=== PATIENT | female | born 1995 | race Caucasian/White ===

== ENCOUNTER 2021-10-03 19:13 | Emergency (ER) | payer SELFPAY ==
[2021-10-03 20:07] VITALS: BP 113/76; PULSE 118; RESP 22; TEMP 37.8; O2SAT 97; BMI 23.2
--- NOTE | 2021-10-03 20:13 | W.ED.NAVMDI ---
HPI - Nausea/Vomiting/Diarrhea General: Chief complaint: Nausea/Vomiting/Diarrhea Stated complaint: N/V, low back pain Time Seen by Provider: 10/03/21 20:13 History of Present Illness: HPI Narrative: Patient reports flulike symptoms 2 weeks ago. Patient comes in today due to feeling ill since last night with nausea and vomiting and dysuria. Patient denies any abnormal vaginal discharge. Patient has a tubal ligation. Patient appears mildly unwell but not toxic. Patient denies any chronic medical problems. Associated nausea: Yes Associated symtoms: Reports dysuria and nausea Review of Systems GI: Reports: nausea and vomiting : Reports: difficulty voiding and dysuria [facility] ED Female Reproductive History: Date of last menstrual period: 09/30/21 Physical Exam Const: COMMON NORMALS: patient oriented x3 and alert GENERAL APPEARANCE: cooperative HENMT: COMMON NORMALS: atraumatic HEAD & SCALP: atraumatic Resp: COMMON NORMALS: normal respiratory effort and clear to auscultation bilaterally AUSCULTATION: clear to auscultation bilaterally GI: COMMON NORMALS: Soft to palpation PALPATION: Yes Soft to palpation and Yes Tenderness to palpation present (GI) Details: other (Suprapubic) : BLADDER/KIDNEY EXAM: Yes CVA tenderness on the right Back/Pelvis: GENERAL BACK: Yes CVA tenderness Neuro: COMMON NORMALS: patient oriented x3 SENSORIUM/ORIENTATION: Yes alert Psych: COMMON NORMALS: cooperative Skin: COMMON NORMALS: no rashes or lesions noted GENERAL SKIN EXAM: no rashes or lesions noted Course Vital Signs: Vital signs: Vital Signs Temperature 100.1 F H 10/03/21 20:07 Pulse Rate 118 H 10/03/21 20:07 Respiratory Rate 18 10/03/21 20:46 Blood Pressure 113/76 10/03/21 20:07 Pulse Oximetry 97 10/03/21 20:07 MDM - Nausea/Vomiting/Diarrhea MDM Narrative: Medical decision making narrative: Patient comes in with a 24-hour history of increasing urinary difficulty and pain with some right flank pain. On exam patient appears mildly unwell. Lungs are clear to auscultation. Abdomen is soft with suprapubic tenderness. Patient did have some right CVA tenderness. Vital signs noted some elevation in pulse at 118 and temperature of 100.1. Differential diagnosis includes UTI, pyelonephritis, appendicitis. Urinalysis had a large amount of white blood cells. Urine culture was sent. Patient have CBC of 17,000. Sodium was 3.4 and potassium was 134 suggesting some mild dehydration. No signs of appendicitis was noted at this time. Suspect patient probably has a urinary tract infection with some mild pyelonephritis. Patient was given 1 L of IV fluid, a gram of ceftriaxone IV, and some morphine and ondansetron for her symptoms. Patient felt improved after IV fluids she will continue on oral antibiotics for completion of therapy. Patient was also given a short course of hydrocodone for breakthrough pain after review of record indicated no recent narcotic prescriptions. Lab Data: Labs: Lab Results 10/03/21 10/03/21 10/03/21 20:40 20:40 20:40 WBC 17.7 10^3/uL H 10 ^3/uL (4.0-10.0) RBC 4.84 10^6/uL 10^6 /uL (4.1-5.3) Hgb 13.0 g/dL g/dL (11.5-15.3) Hct 39.9 % % (37.0-47.0) MCV 82.4 fl fl (81-99) MCH 26.9 pg L pg (28.0-34.0) MCHC 32.6 g/dL g/dL (30.0-36.0) RDW 13.5 % % (12.1-15.1) Plt Count 324 10^3/cmm 10^3 /cmm (130-400) MPV 9.3 fL fL (7.4-10.4) Neut % (Auto) 84.2 % % Lymph % (Auto) 6.8 % % [place] % (Auto) 8.0 % % Eos % (Auto) 0.1 % % Baso % (Auto) 0.3 % % Neut # (Auto) 14.95 10^3/uL H 1 0^3/uL (1.8-7.7) Lymph # (Auto) 1.2 10^3/uL 10^3/ uL (0.8-4.8) [place] # (Auto) 1.4 10^3/uL H 10^ 3/uL (0.2-0.9) Eos # (Auto) 0.0 10^3/uL 10^3/ uL (0.0-0.8) Baso # (Auto) 0.1 10^3/uL 10^3/ uL (0.0-0.1) Nucleated RBC % (a uto) 0 % % Nucleated RBCs # 0.0 /100WBC /100W BC Sodium 134 mmol/L L mmol /L (136-145) Potassium 3.4 mmol/L L mmol /L (3.5-5.1) Chloride 95 mmol/L L mmol/ L (98-107) Carbon Dioxide 23 mmol/L mmol/L (22-29) Anion Gap 19.4 H (5-19) BUN 10 mg/dL mg/dL (6-20) Creatinine 0.8 mg/dL mg/dL (0.5-0.9) GFR Calculation 85.4 mL/min L mL/ min (90-130) Glucose 115 mg/dL mg/dL (65-115) Calculated Osmolal ity 278 mOsm/kg L mOs m/kg (285-295) Calcium 9.2 mg/dL mg/dL (8.5-10.5) Total Bilirubin 0.8 mg/dL mg/dL (0.15-1.2) AST 12 U/L U/L (0-32) ALT 9 U/L U/L (0-33) Alkaline Phosphata se 77 IU/L IU/L (35-105) Total Protein 8.3 g/dL g/dL (6.6-8.7) Albumin 4.8 g/dL g/dL (3.5-5.2) Globulin 3.5 g/dL g/dL (1.3-4.6) Lipase 19 U/L U/L (13-60) HCG, Qual Negative (Negative) Urine Color Urine Appearance Urine pH Ur Specific Gravit y Urine Protein Urine Glucose (UA) Urine Ketones Urine Blood Urine Nitrate Urine Bilirubin Prot Sulfosalicyli c Acd Urine Urobilinogen Ur Leukocyte Leslye ase Urine RBC Urine WBC Ur Squamous Epith Cells Amorphous Sediment Urine Bacteria 10/03/21 20:40 WBC RBC Hgb Hct MCV MCH MCHC RDW Plt Count MPV Neut % (Auto) Lymph % (Auto) [place] % (Auto) Eos % (Auto) Baso % (Auto) Neut # (Auto) Lymph # (Auto) [place] # (Auto) Eos # (Auto) Baso # (Auto) Nucleated RBC % (a uto) Nucleated RBCs # Sodium Potassium Chloride Carbon Dioxide Anion Gap BUN Creatinine GFR Calculation Glucose Calculated Osmolal ity Calcium Total Bilirubin AST ALT Alkaline Phosphata se Total Protein Albumin Globulin Lipase HCG, Qual Urine Color Yellow (Yellow) Urine Appearance Hazy A (CLEAR) Urine pH 8 H (5-7) Ur Specific Gravit y 1.010 (1.005-1.030) Urine Protein 3+ H (Negative) Urine Glucose (UA) Norm (Normal) Urine Ketones 1+ H (Negative) Urine Blood 3+ H (Negative) Urine Nitrate Negative (Negative) Urine Bilirubin Neg (Negative) Prot Sulfosalicyli c Acd Positive (Negative) Urine Urobilinogen Norm mg/dL mg/dL (Negative) Ur Leukocyte Leslye ase 2+ H (Negative) Urine RBC 25-40 /hpf H /hpf (0-2) Urine WBC >100 /hpf H /hpf (0-5) Ur Squamous Epith Cells 15-25 /hpf H /hpf (0-5) Amorphous Sediment Not Reportable Urine Bacteria 4+ /hpf H /hpf (NONE) Discharge Plan Discharge Patient Disposition: Home Clinical Impression: Pyelonephritis Condition: Stable Prescriptions: New cephalexin 500 mg capsule 500 mg PO Q8H 7 Days Qty: 21 RF: 0 phenazopyridine 100 mg tablet 100 mg PO Q8H Qty: 6 RF: 0 hydrocodone-acetaminophen 5-325 mg tablet 1 tab PO Q8H PRN (Reason: pain (scale score 7-10)) Qty: 6 RF: 0 Discharge Orders: Discharge ED (Routine); Ordered 10/03/21 Ordered By: Bautista Rios Discharge Diet: Usual diet Discharge Activity: Increase activity as tolerated Patient Instructions: Kidney Infection (ED), Opioid Safety Activity Restrictions/Additional Instructions: Drink plenty of water. Take medication as directed. Follow-up with primary care in 1 week for recheck of urine. Return to the ER for new concerns. 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
[2021-10-03] MEDS: sodium chloride 0.9% 1,000 ML 999 ML IV (20:40)
[2021-10-03 20:46] VITALS: RESP 18
[2021-10-03] MEDS: morphine 4 mg/mL SDV 1 mL 2 MG IVP (20:46)
[2021-10-03] MEDS: ondansetron 2 mg/ML SDV 2 mL 4 MG IVP (20:46)
[2021-10-03 20:50] LABS: Basophils # 0.1 10^3/uL (0.0-0.1); Basophils % 0.3 %; Eosinophils % 0.1 %; Hematocrit 39.9 % (37.0-47.0); Lymphocytes # 1.2 10^3/uL (0.8-4.8); Lymphocytes % 6.8 %; Mean Corpuscular HGB Conc 32.6 g/dL (30.0-36.0); Mean Corpuscular Hemoglobin 26.9 pg (28.0-34.0); Mean Corpuscular Volume 82.4 fl (81-99); Mean Platelet Volume 9.3 fL (7.4-10.4); Monocytes # 1.4 10^3/uL (0.2-0.9); Neutrophils # 14.95 10^3/uL (1.8-7.7); Neutrophils % 84.2 %; Nucleated Red Blood Cells % 0 %; Platelet Count 324 10^3/cmm (130-400); Red Blood Count 4.84 10^6/uL (4.1-5.3); Red Cell Distribution Width 13.5 % (12.1-15.1); White Blood Count 17.7 10^3/uL (4.0-10.0)
[2021-10-03 21:08] LABS: Add Urine Microscopic? YES; Bilirubin Urine Neg (Negative); Blood Urine 3+ (Negative); Glucose Urine UA Norm (Normal); Ketones Urine 1+ (Negative); Leukocyte Esterase Urine 2+ (Negative); Nitrate Urine Negative (Negative); Protein Urine 3+ (Negative); Sulfosalicylic Acid Urine Positive (Negative); Urine Appearance Hazy (CLEAR); Urine Color Yellow (Yellow); Urobilinogen Urine Norm (Negative); pH Urine 8 (5-7)
[2021-10-03 21:10] LABS: HCG, Serum Qual Negative (Negative)
[2021-10-03 21:13] LABS: Add Urine Culture? No; Bacteria Urine 4+ /hpf; RBC Urine 25-40 /hpf (0-2); Squamous Epithelial Cell Urine 15-25 /hpf (0-5); WBC Urine >100 /hpf (0-5)
[2021-10-03 21:18] LABS: Alanine Aminotransferase 9 U/L (0-33); Albumin Level 4.8 g/dL (3.5-5.2); Alkaline Phosphatase 77 IU/L (35-105); Anion Gap 19.4 (5-19); Aspartate Amino Transferase 12 U/L (0-32); Blood Urea Nitrogen 10 mg/dL (6-20); Calcium 9.2 mg/dL (8.5-10.5); Carbon Dioxide 23 mmol/L (22-29); Chloride 95 mmol/L (98-107); Globulin 3.5 g/dL (1.3-4.6); Glomerular Filtration Rate 85.4 mL/min (90-130); Glucose 115 mg/dL (65-115); Lipase 19 U/L (13-60); Osmolality Calculated 278 mOsm/kg (285-295); Potassium 3.4 mmol/L (3.5-5.1); Sodium 134 mmol/L (136-145); Total Bilirubin 0.8 mg/dL (0.15-1.2); Total Protein 8.3 g/dL (6.6-8.7)
[2021-10-03] MEDS: cefTRIAXone 1,000 MG in sodium chloride 0.9% (plus) 50 ML 100 MG IV (21:44)
[2021-10-03] MEDS: HYDROcodone-acetaminophen 5-325 mg Tablet 1 TAB PO (22:12)
[2021-10-03 22:23] VITALS: BP 124/49; PULSE 97; RESP 20; O2SAT 96
== END 2021-10-03 22:24 | disposition home or self-care (01) ==
PROVIDERS: Emergency Provider Nurse Practitioner Family
DX: N12 Tubulo-interstitial nephritis, not specified as acute or chronic (principal)
CPT/HCPCS: 80053; 81001; 83690; 84703; 85025; 96365; 96375; 99283; J0696; J2270; J2405; J7030

== ENCOUNTER 2022-03-10 19:32 | Emergency (ER) | payer MEDICAID, SELFPAY ==
[2022-03-10 19:53] VITALS: BP 139/80; PULSE 99; RESP 20; TEMP 37.8; O2SAT 98; BMI 22.8
--- NOTE | 2022-03-10 23:09 | XRR_ITS ---
PROCEDURE INFORMATION: Exam: XR Chest Exam date and time: 03/10/2022 11:11 PM Age: 26 years old Clinical indication: Patient HX: C/O fever. TECHNIQUE: Imaging protocol: Radiologic exam of the chest. Views: 1 view. COMPARISON: CR Chest 2 views* [id number] 10/15/2018 5:54 PM FINDINGS: Lungs: Unremarkable. No consolidation. Pleural spaces: Unremarkable. No pleural effusion. No pneumothorax. Heart/Mediastinum: Unremarkable. No cardiomegaly. Bones/joints: Unremarkable. XR/XR chest 1V portable [id number] IMPRESSION: No acute findings.
--- NOTE | 2022-03-10 23:15 | ED_ITS ---
HPI - Abdominal Pain General: Chief Complaint: Abdominal Pain Stated Complaint: abd pain , N/V Time Seen by Provider: 03/10/22 23:03 Source: patient Mode of arrival: ambulatory Limitations: no limitations History of Present Illness: 26-year-old female states that over the last day she has been having low-grade fevers along with generalized body aches. States she is just felt weak and not well she has been having some flank pain. She states she also had nausea no vomiting she denies any worsening improving factors she does have a low-grade fever here denies any known sick contacts. She Associated Symptoms: Reports chills, fever(s) and nausea Related Data: Date of Last Menstrual Period: 09/30/21 Review of Systems Const: Reports: fever(s) and chills Eyes: Denies: blurry vision or eye discomfort ENMT: Denies: throat pain or dental pain Card: Denies: chest pain Resp: Denies: dyspnea GI: Reports: abdominal pain and nausea : Reports: flank pain Musc: Denies: neck pain or back pain Skin/Breast: Denies: rash Neuro: Denies: headache(s) Psych: Denies: depression Wade/Lymph: Denies: easy bruising All/Imm: Denies: urticaria PFSH ED PFSH: Medical History (Updated 03/11/22 @ 01:02 by Chad Brown MD) No pertinent past medical history Social History (Updated 03/10/22 @ 23:15 by Chad Brown MD) Smoking and tobacco status: former smoker Female Reproductive History: Date of last menstrual period: 09/30/21 Physical Exam Const: COMMON NORMALS: no acute distress, patient oriented x3 and healthy appearing HENMT: COMMON NORMALS: normocephalic and atraumatic HEAD & SCALP: normocephalic and atraumatic Eye: COMMON NORMALS: Equal, round and reactive pupils present and EOMs intact bilaterally PUPIL: Yes Equal, round and reactive pupils present Neck/C-Spine: COMMON NORMALS: full ROM and supple Chest: COMMONS NORMALS: normal inspection of the chest and normal palpation of entire chest wall Resp: COMMON NORMALS: normal respiratory effort, No retractions, No use of accessory muscles and clear to auscultation bilaterally AUSCULTATION: clear to auscultation bilaterally Cardio: COMMON NORMALS: regular rate, regular rhythm and No murmurs present (Cardio) RATE: regular rate RHYTHM: regular rhythm GI: COMMON NORMALS: Normal to inspection, nondistended, normoactive bowel sounds present, Soft to palpation, non-tender and no masses PALPATION: Yes Soft to palpation Extremity: COMMON NORMALS: normal to inspection and full ROM Neuro: COMMON NORMALS: patient oriented x3, moves all extremities and no focal motor deficits Psych: COMMON NORMALS: mental status grossly normal, Normal thought process present and cooperative THOUGHT PROCESS: Normal thought process present Skin: COMMON NORMALS: no rashes or lesions noted and no wounds GENERAL SKIN EXAM: no rashes or lesions noted Course Vital Signs: Vital signs: Vital Signs Temperature 100.1 F H 03/10/22 19:53 Pulse Rate 92 03/10/22 23:30 Respiratory Rate 20 H 03/10/22 23:44 Blood Pressure 125/86 03/10/22 23:30 Pulse Oximetry 97 03/10/22 23:44 MDM - Abdominal Pain Medical Decision Making Patient presents here with fever body aches is COVID-positive likely causing most of her symptoms she does have a urinary tract infection as well. We will give her Rocephin here she feels improved here after IV fluids will prescribe her Keflex for home she is to follow-up with PCP and return if worsening she understands agrees to plan. Lab Data : 03/10/22 23:15 03/10/22 23:15 Labs/Radiology: Laboratory Results WBC 3.6 10^3/uL (4.0-10.0) L 03/10/22 23:15 RBC 4.72 10^6/uL (4.1-5.3) 03/10/22 23:15 Hgb 12.8 g/dL (11.5-15.3) 03/10/22 23:15 Hct 37.4 % (37.0-47.0) 03/10/22 23:15 MCV 79.2 fl (81-99) L 03/10/22 23:15 MCH 27.1 pg (28.0-34.0) L 03/10/22 23:15 MCHC 34.2 g/dL (30.0-36.0) 03/10/22 23:15 RDW 14.6 % (12.1-15.1) 03/10/22 23:15 Plt Count 150 10^3/cmm (130-400) 03/10/22 23:15 MPV 10.3 fL (7.4-10.4) 03/10/22 23:15 Neut % (Auto) 61.3 % 03/10/22 23:15 Lymph % (Auto) 18.1 % 03/10/22 23:15 [place] % (Auto) 19.4 % 03/10/22 23:15 Eos % (Auto) 0.3 % 03/10/22 23:15 Baso % (Auto) 0.3 % 03/10/22 23:15 Neut # (Auto) 2.21 10^3/uL (1.8-7.7) 03/10/22 23:15 Lymph # (Auto) 0.7 10^3/uL (0.8-4.8) L 03/10/22 23:15 [place] # (Auto) 0.7 10^3/uL (0.2-0.9) 03/10/22 23:15 Eos # (Auto) 0.0 10^3/uL (0.0-0.8) 03/10/22 23:15 Baso # (Auto) 0.0 10^3/uL (0.0-0.1) 03/10/22 23:15 Nucleated RBC % (auto) 0 % 03/10/22 23:15 Nucleated RBCs # 0.0 /100WBC 03/10/22 23:15 Sodium 132 mmol/L (136-145) L 03/10/22 23:15 Potassium 3.2 mmol/L (3.5-5.1) L 03/10/22 23:15 Chloride 95 mmol/L (98-107) L 03/10/22 23:15 Carbon Dioxide 18 mmol/L (22-29) L 03/10/22 23:15 Anion Gap 22.2 (5-19) H 03/10/22 23:15 BUN 11 mg/dL (6-20) 03/10/22 23:15 Creatinine 0.9 mg/dL (0.5-0.9) 03/10/22 23:15 GFR Calculation 74.6 mL/min (90-130) L 03/10/22 23:15 Glucose 89 mg/dL (65-115) 03/10/22 23:15 Calculated Osmolality 273 mOsm/kg (285-295) L 03/10/22 23:15 Calcium 8.8 mg/dL (8.5-10.5) 03/10/22 23:15 Total Bilirubin 0.4 mg/dL (0.15-1.2) 03/10/22 23:15 AST 18 U/L (0-32) 03/10/22 23:15 ALT 7 U/L (0-33) 03/10/22 23:15 Alkaline Phosphatase 63 IU/L (35-105) 03/10/22 23:15 Total Protein 8.1 g/dL (6.6-8.7) 03/10/22 23:15 Albumin 4.9 g/dL (3.5-5.2) 03/10/22 23:15 Globulin 3.2 g/dL (1.3-4.6) 03/10/22 23:15 Lipase 36 U/L (13-60) 03/10/22 23:15 HCG, Qual Negative (Negative) 03/10/22 23:15 Urine Color Yellow (Yellow) 03/11/22 00:31 Urine Appearance Sl hazy (CLEAR) 03/11/22 00:31 Urine pH 6 (5-7) 03/11/22 00:31 Ur Specific [place] 1.025 (1.005-1.030) 03/11/22 00:31 Urine Protein Trace (Negative) 03/11/22 00:31 Urine Glucose (UA) Norm (Normal) 03/11/22 00:31 Urine Ketones 3+ (Negative) H 03/11/22 00:31 Urine Blood 2+ (Negative) H 03/11/22 00:31 Urine Nitrate Positive (Negative) H 03/11/22 00:31 Urine Bilirubin Neg (Negative) 03/11/22 00:31 Urine Urobilinogen Norm mg/dL (Negative) 03/11/22 00:31 Ur Leukocyte Esterase Negative (Negative) 03/11/22 00:31 Urine RBC 5-10 /hpf (0-2) H 03/11/22 00:31 Urine WBC 5-10 /hpf (0-5) H 03/11/22 00:31 Ur Squamous Epith Cells 15-25 /hpf (0-5) H 03/11/22 00:31 Amorphous Sediment Not Reportable 06/24/22 00:31 Urine Bacteria 3+ /hpf (NONE) H 03/11/22 00:31 Urine Mucus 1+ /hpf 03/11/22 00:31 SARS-CoV-2 Ag (Rapid) Positive (Negative) H 03/10/22 23:30 Discharge Plan Discharge Patient Disposition: Home Clinical Impression: COVID-19, Acute cystitis Prescriptions: New cephalexin 500 mg capsule 500 mg PO TID 7 Days Qty: 21 0RF No Action phenazopyridine 100 mg tablet 100 mg PO Q8H Qty: 6 0RF Rx Instructions: urinary pain hydrocodone-acetaminophen 5-325 mg tablet 1 tab PO Q8H PRN (Reason: pain (scale score 7-10)) Qty: 6 0RF Discharge Orders: Discharge ED (Routine); Ordered 03/11/22 Ordered By: Chad Brown Discharge Diet: Advance as tolerated Discharge Activity: Resume usual activity Patient Instructions: COVID-19 (Coronavirus Disease 2019) (ED) Coding Level of Care Code ED [employer] Application Architect for Janel Fwd Exam Comprehensive
[2022-03-10 23:22] LABS: Basophils % 0.3 %; Eosinophils % 0.3 %; Hematocrit 37.4 % (37.0-47.0); Hemoglobin 12.8 g/dL (11.5-15.3); Lymphocytes # 0.7 10^3/uL (0.8-4.8); Lymphocytes % 18.1 %; Mean Corpuscular HGB Conc 34.2 g/dL (30.0-36.0); Mean Corpuscular Hemoglobin 27.1 pg (28.0-34.0); Mean Corpuscular Volume 79.2 fl (81-99); Mean Platelet Volume 10.3 fL (7.4-10.4); Monocytes # 0.7 10^3/uL (0.2-0.9); Monocytes % 19.4 %; Neutrophils # 2.21 10^3/uL (1.8-7.7); Neutrophils % 61.3 %; Nucleated Red Blood Cells % 0 %; Platelet Count 150 10^3/cmm (130-400); Red Blood Count 4.72 10^6/uL (4.1-5.3); Red Cell Distribution Width 14.6 % (12.1-15.1); White Blood Count 3.6 10^3/uL (4.0-10.0)
[2022-03-10 23:26] VITALS: BP 130/77; PULSE 95; RESP 20
[2022-03-10 23:30] VITALS: BP 125/86; PULSE 92; RESP 20
[2022-03-10 23:38] LABS: HCG, Serum Qual Negative (Negative)
[2022-03-10 23:39] LABS: Alanine Aminotransferase 7 U/L (0-33); Albumin Level 4.9 g/dL (3.5-5.2); Alkaline Phosphatase 63 IU/L (35-105); Anion Gap 22.2 (5-19); Aspartate Amino Transferase 18 U/L (0-32); Blood Urea Nitrogen 11 mg/dL (6-20); Calcium 8.8 mg/dL (8.5-10.5); Carbon Dioxide 18 mmol/L (22-29); Chloride 95 mmol/L (98-107); Globulin 3.2 g/dL (1.3-4.6); Glomerular Filtration Rate 74.6 mL/min (90-130); Glucose 89 mg/dL (65-115); Lipase 36 U/L (13-60); Osmolality Calculated 273 mOsm/kg (285-295); Potassium 3.2 mmol/L (3.5-5.1); Sodium 132 mmol/L (136-145); Total Bilirubin 0.4 mg/dL (0.15-1.2); Total Protein 8.1 g/dL (6.6-8.7)
[2022-03-10 23:44] VITALS: RESP 20; O2SAT 97
[2022-03-10] MEDS: acetaminophen 325 mg Tablet 650 MG PO (23:44)
[2022-03-10] MEDS: sodium chloride 0.9% 1,000 ML 999 ML IV (23:44)
[2022-03-10] MEDS: morphine 4 mg/mL SDV 1 mL IVP (23:44)
[2022-03-10] MEDS: ondansetron 2 mg/ML SDV 2 mL 4 MG IVP (23:44)
[2022-03-11 00:23] LABS: SARS Covid-2 Antigen Positive (Negative)
[2022-03-11] MEDS: sodium chloride 0.9% 1,000 ML 999 ML IV (00:49)
[2022-03-11] MEDS: ketorolac 30 mg/mL INJ 15 MG IVP (00:49)
[2022-03-11 00:55] LABS: Glucose Urine UA Norm (Normal); Protein Urine Trace (Negative); Specific Gravity, Urine 1.025 (1.005-1.030); Urine Appearance SL Hazy (CLEAR); Urine Color Yellow (Yellow); pH Urine 6 (5-7)
[2022-03-11 00:56] LABS: Add Urine Microscopic? YES; Bilirubin Urine Neg (Negative); Blood Urine 2+ (Negative); Ketones Urine 3+ (Negative); Leukocyte Esterase Urine Negative (Negative); Nitrate Urine Positive (Negative); Urobilinogen Urine Norm (Negative)
[2022-03-11 00:58] LABS: Add Urine Culture? No; Bacteria Urine 3+ /hpf; Mucus Urine 1+ /hpf; Squamous Epithelial Cell Urine 15-25 /hpf (0-5)
[2022-03-11 01:09] LABS: Calcium Oxalate Crystals Urine 0-4 /hpf
[2022-03-11] MEDS: cefTRIAXone 1,000 MG in lidocaine 1% 2.1 ML 1 MG IM (01:21)
[2022-03-11 01:30] VITALS: BP 124/66; PULSE 93; RESP 22; O2SAT 94
[2022-03-11 01:37] VITALS: BP 124/66; PULSE 93; RESP 22; O2SAT 94
== END 2022-03-11 01:38 | disposition home or self-care (01) ==
PROVIDERS: Emergency Provider Emergency Medicine
DX: N30.00 Acute cystitis without hematuria (principal); Z87.891 Personal history of nicotine dependence
CPT/HCPCS: 71045; 80053; 81001; 83690; 84703; 85025; 87426; 96365; 96375; 99284; J0696; J1885; J2270; J2405; J7030

== ENCOUNTER 2022-05-16 07:49 | Inpatient (IN) | payer MEDICAID, SELFPAY ==
[2022-05-16] VITALS (9 sets, daily range): BP systolic 101–121; BP diastolic 53–83; PULSE 77–109; RESP 15–24; TEMP 36.6–39.2; O2SAT 95–100; BMI 25.6
--- NOTE | 2022-05-16 08:26 | ED_ITS ---
HPI - Nausea/Vomiting/Diarrhea General: Chief complaint: ER Hold Stated complaint: Sick and in pain Time Seen by Provider: 05/16/22 07:55 Source: patient Mode of arrival: ambulatory History of Present Illness: 26-year-old female presents emergency room complaining of nausea and vomiting. She has left flank pain and a severe head ache. She has not had any diarrhea. She is currently on her. She is not noticed any blood in her urine but admits is difficult to tell. She has no history of kidney stones she has a temp of 102.6 at this time is complaining of severe headache. 3 days ago she drove a vehicle in a [place] although the headache seemed to begin after that. She cannot recall when her last bowel movement was. She does have an umbilical hernia that is incarcerated and significantly tender. She denies any hematemesis or coffee-ground emesis. The fever nausea and vomiting all began suddenly around 430 this morning. MD elicited complaint: nausea and vomiting Onset (ago): hour(s) Associated nausea: Yes Location of pain: None Radiation: diffuse Associated symtoms: Reports dysuria, fatigue, malaise and nausea; Denies chest pain, palpitations or syncope Review of Systems Const: Reports: fever(s), chills, body aches, fatigue and malaise; Denies: change in appetite ENMT: Denies: throat pain, ear or mastoid pain, nasal discharge or nasal congestion Card: Denies: chest pain, palpitations, irregular heart rhythm, edema, syncope, dyspnea on exertion or orthopnea Resp: Denies: dyspnea, productive cough or non-productive cough GI: Reports: nausea; Denies: abdominal pain, vomiting or hematemesis : Reports: flank pain, dysuria and urinary frequency; Denies: difficulty voiding or urinary urgency Musc: Reports: back pain Skin/Breast: Denies: rash or pruritus PFSH ED PFSH: Medical History No pertinent past medical history Surgical History History of Family History Other Cancer Social History (Reviewed 09/06/22 @ 06:16 by RADHA Clifton Smoking and tobacco status: current every day smoker Alcohol intake: current Female Reproductive History: Date of last menstrual period: 05/16/22 Physical Exam Const: GENERAL APPEARANCE: cooperative ORIENTATION/CONSCIOUSNESS: Yes awake, Yes oriented to person, Yes oriented to place and Yes oriented to time HENMT: COMMON NORMALS: normocephalic, atraumatic and hearing grossly normal bilaterally HEAD & SCALP: normocephalic and atraumatic Resp: COMMON NORMALS: normal respiratory effort, No retractions, No use of accessory muscles and clear to auscultation bilaterally AUSCULTATION: clear to auscultation bilaterally Cardio: COMMON NORMALS: regular rhythm and No murmurs present (Cardio) RATE: tachycardic RHYTHM: regular rhythm GI: COMMON NORMALS: Soft to palpation and No hepatosplenomegaly present AUSCULTATION: Yes normoactive bowel sounds PALPATION: Yes Soft to palpation, No Tenderness to palpation present (GI), No Guarding due to palpation present (GI) and Yes No hepatosplenomegaly present : BLADDER/KIDNEY EXAM: Yes CVA tenderness Back/Pelvis: GENERAL BACK: Yes CVA tenderness CVA tenderness: right Extremity: COMMON NORMALS: normal to inspection, capillary refill normal, no clubbing, cyanosis or edema, no calf tenderness and no pedal edema Neuro: SENSORIUM/ORIENTATION: Yes oriented to person, Yes oriented to place and Yes oriented to time Skin: COMMON NORMALS: no rashes or lesions noted GENERAL SKIN EXAM: no rashes or lesions noted Course Vital Signs: Vital signs: Vital Signs Temperature 97.8 F 05/18/22 12:41 Pulse Rate 68 05/18/22 12:41 Respiratory Rate 17 05/18/22 12:41 Blood Pressure 88/55 05/18/22 12:41 Pulse Oximetry 98 05/18/22 12:41 Oxygen Delivery Me thod 05/18/22 03:45 MDM - Nausea/Vomiting/Diarrhea Medical Decision Making Cystitis on UA. Given her symptoms of fever flank pain and CT findings of stranding clinically she has a pyelonephritis discussed with hospitalist orders written Lab Data : 05/18/22 04:16 05/18/22 04:16 Radiology Impressions Abdomen/Pelvis CT 05/16/22 08:28 IMPRESSION: 1. Multifocal RIGHT renal pyelonephritis. No renal abscess. No obstruction although there are mild inflammatory changes in the central renal pelvis and pro ximal ureter. 2. Negative LEFT kidney. 3. Normal appendix. 4. Fluid distended endometrium. Slightly more than expected but could be related to the patient's menstrual cycle. 5. Small amount of physiologic free fluid in the pelvis. Head CT 05/16/22 08:28 IMPRESSION: Negative head CT. Laboratory Results WBC 9.0 10^3/uL (4.0-10.0) 05/17/22 05:08 RBC 3.75 10^6/uL (4.1-5.3) L 05/17/22 05:08 Hgb 10.8 g/dL (11.5-15.3) L 05/17/22 05:08 Hct 33.0 % (37.0-47.0) L 05/17/22 05:08 MCV 88.0 fl (81-99) D 05/17/22 05:08 MCH 28.8 pg (28.0-34.0) 05/17/22 05:08 MCHC 32.7 g/dL (30.0-36.0) D 05/17/22 05:08 RDW 13.8 % (12.1-15.1) 05/17/22 05:08 Plt Count 191 10^3/cmm (130-400) 05/17/22 05:08 MPV 9.2 fL (7.4-10.4) 05/17/22 05:08 Neut % (Auto) 66.4 % 05/17/22 05:08 Lymph % (Auto) 18.9 % 05/17/22 05:08 [place] % (Auto) 13.0 % 05/17/22 05:08 Eos % (Auto) 1.0 % 05/17/22 05:08 Baso % (Auto) 0.3 % 05/17/22 05:08 Neut # (Auto) 5.94 10^3/uL (1.8-7.7) 05/17/22 05:08 Lymph # (Auto) 1.7 10^3/uL (0.8-4.8) 05/17/22 05:08 [place] # (Auto) 1.2 10^3/uL (0.2-0.9) H 05/17/22 05:08 Eos # (Auto) 0.1 10^3/uL (0.0-0.8) 05/17/22 05:08 Baso # (Auto) 0.0 10^3/uL (0.0-0.1) 05/17/22 05:08 Nucleated RBC % (auto) 0 % 05/17/22 05:08 Nucleated RBCs # 0.0 /100WBC 05/17/22 05:08 Sodium 135 mmol/L (136-145) L 05/17/22 05:08 Potassium 3.9 mmol/L (3.5-5.1) 05/17/22 05:08 Chloride 105 mmol/L (98-107) 05/17/22 05:08 Carbon Dioxide 23 mmol/L (22-29) 05/17/22 05:08 Anion Gap 10.9 (5-19) 05/17/22 05:08 BUN 4 mg/dL (6-20) L 05/17/22 05:08 Creatinine 0.6 mg/dL (0.5-0.9) 05/17/22 05:08 GFR Calculation 119.0 mL/min (90-130) 05/17/22 05:08 Glucose 127 mg/dL (65-115) H 05/17/22 05:08 Calculated Osmolality 278 mOsm/kg (285-295) L 05/17/22 05:08 Calcium 7.9 mg/dL (8.5-10.5) L 05/17/22 05:08 Magnesium 1.6 mg/dL (1.7-2.3) L 05/16/22 08:25 Total Bilirubin 0.6 mg/dL (0.15-1.2) 05/16/22 08:25 AST 12 U/L (0-32) 05/16/22 08:25 ALT 6 U/L (0-33) 05/16/22 08:25 Alkaline Phosphatase 65 U/L (35-105) 05/16/22 08:25 Total Protein 7.5 g/dL (6.6-8.7) 05/16/22 08:25 Albumin 4.2 g/dL (3.5-5.2) 05/16/22 08:25 Globulin 3.3 g/dL (1.3-4.6) 05/16/22 08:25 TSH 0.98 uIU/mL (0.27-4.20) 05/16/22 08:25 HCG, Qual Negative (Negative) 05/16/22 08:25 Urine Color Yellow (Yellow) 05/16/22 08:40 Urine Appearance Sl hazy (CLEAR) 05/16/22 08:40 Urine pH 9 (5-7) H 05/16/22 08:40 Ur Specific [place] 1.015 (1.005-1.030) 05/16/22 08:40 Urine Protein Neg (Negative) 05/16/22 08:40 Urine Glucose (UA) Norm (Normal) 05/16/22 08:40 Urine Ketones 1+ (Negative) H 05/16/22 08:40 Urine Blood Neg (Negative) 05/16/22 08:40 Urine Nitrate Positive (Negative) H 05/16/22 08:40 Urine Bilirubin Neg (Negative) 05/16/22 08:40 Prot Sulfosalicylic Acd Negative (Negative) 05/16/22 08:40 Urine Urobilinogen Norm mg/dL (Negative) 05/16/22 08:40 Ur Leukocyte Esterase Trace (Negative) H 05/16/22 08:40 Urine RBC None /hpf (0-2) 05/16/22 08:40 Urine WBC 15-25 /hpf (0-5) H 05/16/22 08:40 Ur Squamous Epith Cells 0-4 /hpf (0-5) H 05/16/22 08:40 Amorphous Sediment Not Reportable 05/16/22 08:40 Urine Bacteria 2+ /hpf (NONE) H 05/16/22 08:40 Coronavirus 229E (PCR) Not detected (NOT DETECT) 05/16/22 08:45 SARS-CoV-2 (PCR) Not detected (NOT DETECT) 05/16/22 08:45 Discharge Plan Discharge Patient Disposition: Admitted As Inpatient Admit Provider: Philippe Joyner Clinical Impression: Pyelonephritis Condition: Stable Coding Level of Care Code 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
--- NOTE | 2022-05-16 08:28 | CT_ITS ---
WS: [id number] CT HEAD NONCONTRAST HISTORY: headace/fever TECHNIQUE: Contiguous axial imaging performed through the brain in 2.5 mm imaging. Bone and soft tiss ue windows. Sagittal and coronal reformats reviewed. All CT scans at [facility] use at least one of these dose optimization techniques: automated exposure control; mA and/or kV adjustment per pa tient size (includes targeted exams where dose is matched to clinical indication); or iterative recon struction. DLP: 1020.08 mGy.cm COMPARISON: 06/16/2012 No acute intracranial hemorrhage, midline shift or mass effect. No atrophy or prior infarcts or herniation. Ventricles: Normal size with no hydrocephalus. Paranasal sinuses: As visualized are clear. Mastoid air cells: Well pneumatized. Calvarium and scalp: Skull is intact with no soft tissue edema or swelling. CT/CT head wo con* [id number] IMPRESSION: Negative head CT.
--- NOTE | 2022-05-16 08:28 | CT_ITS ---
WS: [id number] CT ABDOMEN AND PELVIS WITH CONTRAST HISTORY: Lower abdominal pain, LEFT flank pain. Nausea and vomiting. TECHNIQUE: Imaging performed of the abdomen and pelvis with IV contrast. Single phase imaging of the abdomen. Coronal and sagittal reformats are submitted. All CT scans at [facility] use at [address] one of these dose optimization techniques: automated exposure control; mA and/or kV adjustment per patient size (includes targeted exams where dose is matched to clinical indication); or iterative re construction. IV CONTRAST: Omnipaque 350; 80 mL IV. Oral contrast: No DLP: 347.22 mGy.cm COMPARISON: None available. Lower thorax: Lung bases are clear. Heart is normal size. No hiatal hernia. Liver/biliary system: Normal size with no intrahepatic dilatation. Normal portal vein. Gallbladder: Normal. No gallstones or wall thickening. No pericholecystic fluid. Pancreas: Normal size pancreas and pancreatic duct. No adjacent inflammation. Spleen: Normal size spleen. No mass or infarct. Adrenal glands: Normal. Right kidney: RIGHT kidney is mildly enlarged and edematous. Multifocal areas of wedge-shaped decreas ed attenuation throughout the kidney. There is mild thickening of the central pelvis. No hydronephros is. Nonobstructing 3 mm calcification lower pole. Left kidney: No obstruction. Normal enhancement. There are several nonobstructing 2 to 3 mm calcifica tions in the renal pelvis. Aorta: Normal. Lymphadenopathy: None. Free fluid: Small amount of free fluid in the pelvis. Physiologic amount. GI tract: Normal appendix. No GI tract obstruction. Abdominal wall: Fat containing umbilical hernia. Pelvis: Small amount of physiologic free fluid in the pelvis. The uterus is very slightly prominent a nd retroverted. Fluid-filled endometrium measures about 2.0 cm. Bilateral mild pelvic congestion. Bones: Unremarkable. CT/CT abdomen pelvis w con* [id number] IMPRESSION: 1. Multifocal RIGHT renal pyelonephritis. No renal abscess. No obstruction alt bubba there are mild inflammatory changes in the central renal pelvis and proxi mal ureter. 2. Negative LEFT kidney. 3. Normal appendix. 4. Fluid distended endometrium. Slightly more than expected but could be relat ed to the patient's menstrual cycle. 5. Small amount of physiologic free fluid in the pelvis.
[2022-05-16 08:38] LABS: Basophils # 0.1 10^3/uL (0.0-0.1); Basophils % 0.5 %; Eosinophils % 0.3 %; Hematocrit 37.1 % (37.0-47.0); Hemoglobin 12.8 g/dL (11.5-15.3); Lymphocytes # 1.2 10^3/uL (0.8-4.8); Lymphocytes % 9.3 %; Mean Corpuscular HGB Conc 34.5 g/dL (30.0-36.0); Mean Corpuscular Hemoglobin 28.6 pg (28.0-34.0); Mean Corpuscular Volume 82.8 fl (81-99); Mean Platelet Volume 9.7 fL (7.4-10.4); Monocytes # 1.6 10^3/uL (0.2-0.9); Neutrophils # 9.55 10^3/uL (1.8-7.7); Neutrophils % 76.6 %; Nucleated Red Blood Cells % 0 %; Platelet Count 219 10^3/cmm (130-400); Red Blood Count 4.48 10^6/uL (4.1-5.3); Red Cell Distribution Width 13.4 % (12.1-15.1); White Blood Count 12.5 10^3/uL (4.0-10.0)
[2022-05-16 08:50] LABS: HCG, Serum Qual Negative (Negative)
[2022-05-16 08:58] LABS: Alanine Aminotransferase 6 U/L (0-33); Albumin Level 4.2 g/dL (3.5-5.2); Alkaline Phosphatase 65 U/L (35-105); Anion Gap 19.4 (5-19); Aspartate Amino Transferase 12 U/L (0-32); Blood Urea Nitrogen 6 mg/dL (6-20); Calcium 8.7 mg/dL (8.5-10.5); Carbon Dioxide 19 mmol/L (22-29); Chloride 100 mmol/L (98-107); Globulin 3.3 g/dL (1.3-4.6); Glomerular Filtration Rate 99.6 mL/min (90-130); Glucose 112 mg/dL (65-115); Osmolality Calculated 278 mOsm/kg (285-295); Potassium 3.4 mmol/L (3.5-5.1); Sodium 135 mmol/L (136-145); Total Bilirubin 0.6 mg/dL (0.15-1.2); Total Protein 7.5 g/dL (6.6-8.7)
[2022-05-16] MEDS: iohexol 350 mg/mL 100 mL Btl IV (09:10)
[2022-05-16 09:11] LABS: Add Urine Microscopic? YES; Bilirubin Urine Neg (Negative); Blood Urine Neg (Negative); Glucose Urine UA Norm (Normal); Ketones Urine 1+ (Negative); Leukocyte Esterase Urine Trace (Negative); Nitrate Urine Positive (Negative); Protein Urine Neg (Negative); Specific Gravity, Urine 1.015 (1.005-1.030); Sulfosalicylic Acid Urine Negative (Negative); Urine Appearance SL Hazy (CLEAR); Urine Color Yellow (Yellow); Urobilinogen Urine Norm (Negative); pH Urine 9 (5-7)
[2022-05-16 09:12] LABS: Add Urine Culture? Yes; Bacteria Urine 2+ /hpf; Squamous Epithelial Cell Urine 0-4 /hpf (0-5); WBC Urine 15-25 /hpf (0-5)
[2022-05-16] MEDS: acetaminophen 500 mg Tablet 1000 MG PO (09:41)
[2022-05-16] MEDS: cefTRIAXone 2,000 MG in sodium chloride 0.9% (plus) 50 ML 100 MG IV (10:20)
[2022-05-16] MEDS: morphine 4 mg/mL SDV 1 mL IVP (10:20)
[2022-05-16] MEDS: sodium chloride 0.9% 1,000 ML 999 ML IV ×2 (10:20→12:06)
--- NOTE | 2022-05-16 10:22 | P.HP_ITS ---
Providers/Chief Complaint Admitting Physician: Philippe Winter Chief Complaint: Sick and in pain History of Present Illness Ericka Vaz is a 26 year old female who presents to the emergency department with complaints of fever, back pain, nausea and vomiting. She states she is also had a little bit of a headache for the last 3 to 4 days but it is markedly improved after some Tylenol. She denies any dysuria. 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 She has had previous emergency department visits this year, 2, with diagnosis of UTI/pyelonephritis. She denies any IV drug use. Does use marijuana on occasion. Reports she has a medical card. No diarrhea. Had COVID several months ago. Has had some heartburn recently as well. In the emergency department IV fluids were ordered, as well as Rocephin and IV Tylenol. Pain medication morphine as well as Zofran was given as well. Review of Systems General: Reports: 10 or more systems reviewed and unremarkable except in HPI and below Const: Reports: fever(s), chills and body aches Eyes: Denies: change in vision ENMT: Denies: throat pain Card: Denies: chest pain or palpitations Resp: Denies: dyspnea, productive cough or non-productive cough GI: Reports: abdominal pain, nausea and vomiting; Denies: hematemesis, hematochezia or melena : Reports: flank pain Musc: Reports: back pain; Denies: neck pain Skin/Breast: Denies: rash Neuro: Denies: headache(s) Psych: Denies: anxiety or depression Endo: Denies: polyuria Wade/Lymph: Denies: easy bruising All/Imm: Denies: urticaria Medications/Allergies Home Medications Medication Instructions Recorded Confirmed Last Taken Type acetaminophen 500 mg tablet 1,000 mg PO Q6H PRN Pain 05/16/22 05/16/22 05/16/22 05:30 History Allergies Allergy/AdvReac Type Severity Reaction Status Date / Time No Known Allergies Allergy Verified 05/16/22 09:25 PFSH Acute PFSH: Medical History (Updated 05/16/22 @ 10:29 by Philippe Joyner MD) No pertinent past medical history Surgical History (Updated 05/16/22 @ 10:25 by Philippe Joyner MD) History of Family History (Updated 05/16/22 @ 10:25 by Philippe Joyner MD) Other Cancer Social History (Updated 05/16/22 @ 10:26 by Philippe Joyner MD) Smoking and tobacco status: current every day smoker Alcohol intake: current Substance/Drug Use: current Substance/Drug use type: Marijuana Female Reproductive History: Date of last menstrual period: 05/16/22 Other PFSH information: Supplemental PFSH Information: Denies any significant past medical history. Vitals/I&O/Wt Last Vital Signs Temp 102.6 F H 05/16/22 07:58 Pulse 93 05/16/22 10:21 Resp 20 H 05/16/22 10:20 BP 121/80 05/16/22 08:53 Pulse Ox 97 05/16/22 10:21 O2 Del Method 05/16/22 10:21 Weight last 48 hrs Weight 63.503 kg Physical Exam 2 Narrative: General exam is an ill-appearing female, reporting back pain HEENT: Pupils equally round. Oropharynx clear. Mucous membranes dry. Neck is supple no lymphadenopathy thyromegaly Cardiovascular borderline tachycardic, no murmur Lungs clear no wheezing or crackles Abdomen is soft. Positive bowel sounds. Tenderness is present in the epigastric area. No obvious organomegaly. Umbilical hernia noted. exam is deferred Extremities no cyanosis clubbing or edema, cap refill brisk Skin no rash Neuro no obvious focal deficits Data : 05/16/22 08:25 05/16/22 08:25 Other Labs: Urinalysis demonstrates 15-25 white blood cells and 0-4 squamous. Positive for nitrates. 2+ bacteria. COVID PCR pending hCG negative TSH, magnesium pending LFTs normal Head CT negative CT abdomen pelvis demonstrates multifocal right renal pyelonephritis with no evidence of abscess currently. Some inflammatory changes are present in the central renal pelvis and proximal ureter as well. Some fluid is noted in the endometrium, likely related to the patient's menstrual cycle. Blood cultures were collected, as well as urine culture Micro: Microbiology 05/16/22 08:56 Blood Culture - Preliminary Blood SPECIMEN COLLECTED 05/16/22 08:53 Blood Culture - Preliminary Blood SPECIMEN COLLECTED A&P Assessment and plan (1) Pyelonephritis: Patient presents with evidence of pyelonephritis. Symptomatology is fever, flank pain, nausea and vomiting. She appears at least mildly dehydrated. She is at high risk for worsening course if not admitted. Placed on observation Blood culture, urine culture Rocephin IV. No past cultures with any resistant bacteria Monitor closely for improvement Status: Acute (2) Headache: Patient reported significant headache on arrival. CT head negative She did receive IV Tylenol, reports headache is much improved. I did perform a Kernig and Brudzinski's in the room as well and she had no significant increase in discomfort. Status: Acute Plan Previous history of pyelonephritis, UTI on 2 emergency department visits earlier this year. Some stranding and inflammatory changes in the proximal ureter on the right side. She may benefit from urology referral at discharge secondary to recurrent UTI/pyelonephritis. Mild hypokalemia. Potassium added and IV fluids. GERD. Pepcid IV currently, changed to p.o. when tolerating p.o. Full code Low risk, no DVT prophylaxis needed. Attestations Medical Necessity Statement*: Will need less than 2 midnight stay for evaluation and treatment of pyelonephritis. Coding Level of Care Code Acute Manager Battery for Janel Lee Diagnoses Pyelonephritis N12 Headache R51.9
[2022-05-16] MEDS: ondansetron 2 mg/ML SDV 2 mL 4 MG IVP ×2 (10:30→16:20)
[2022-05-16 10:33] LABS: Magnesium 1.6 mg/dL (1.7-2.3); Thyroid Stimulating Hormone 0.98 uIU/mL (0.27-4.20)
[2022-05-16 13:15] LABS: Adenovirus Not Detected (NOT DETECT); Chlamydia Pneumoniae Not Detected (NOT DETECT); Coronavirus 229E,HKU1,NL63,OC4 Not Detected (NOT DETECT); Human Metapneumovirus Not Detected (NOT DETECT); Human Rhinovirus/Enterovirus Not Detected (NOT DETECT); Influenza A Not Detected (NOT DETECT); Influenza A H1 Not Detected (NOT DETECT); Influenza A H1-2009 Not Detected (NOT DETECT); Influenza A H3 Not Detected (NOT DETECT); Influenza B Not Detected (NOT DETECT); Mycoplasma Pneumoniae Not Detected (NOT DETECT); Parainfluenza Virus Type 1 Not Detected (NOT DETECT); Parainfluenza Virus Type 2 Not Detected (NOT DETECT); Parainfluenza Virus Type 3 Not Detected (NOT DETECT); Parainfluenza Virus Type 4 Not Detected (NOT DETECT); Respiratory Syncytial Virus A Not Detected (NOT DETECT); Respiratory Syncytial Virus B Not Detected (NOT DETECT); SARS-COV-2 Not Detected (NOT DETECT)
[2022-05-16] MEDS: famotidine 20 mg/2 mL INJ IVP (16:20)
[2022-05-16] MEDS: D5-NS 0.45% + KCL 20 mEq 20 MEQ/1,000 ML BAG 150 MEQ IV ×2 (16:21→22:36)
[2022-05-16] MEDS: HYDROcodone-acetaminophen 5-325 mg Tablet 1 TAB PO ×2 (16:21→20:25)
[2022-05-16] MEDS: acetaminophen 325 mg Tablet PO (21:22)
[2022-05-17] VITALS (11 sets, daily range): BP systolic 91–109; BP diastolic 57–68; PULSE 65–95; RESP 16–20; TEMP 36.4–37.4; O2SAT 96–99
[2022-05-17] MEDS: famotidine 20 mg/2 mL INJ IVP (02:41)
[2022-05-17] MEDS: oxyCODONE 5 mg IR Tab/Cap 10 MG PO ×2 (03:55→10:49)
[2022-05-17] MEDS: D5-NS 0.45% + KCL 20 mEq 20 MEQ/1,000 ML BAG 150 MEQ IV ×2 (05:14→10:52)
[2022-05-17 05:22] LABS: Basophils % 0.3 %; Eosinophils # 0.1 10^3/uL (0.0-0.8); Hemoglobin 10.8 g/dL (11.5-15.3); Lymphocytes # 1.7 10^3/uL (0.8-4.8); Lymphocytes % 18.9 %; Mean Corpuscular HGB Conc 32.7 g/dL (30.0-36.0); Mean Corpuscular Hemoglobin 28.8 pg (28.0-34.0); Mean Platelet Volume 9.2 fL (7.4-10.4); Monocytes # 1.2 10^3/uL (0.2-0.9); Neutrophils # 5.94 10^3/uL (1.8-7.7); Neutrophils % 66.4 %; Nucleated Red Blood Cells % 0 %; Platelet Count 191 10^3/cmm (130-400); Red Blood Count 3.75 10^6/uL (4.1-5.3); Red Cell Distribution Width 13.8 % (12.1-15.1)
[2022-05-17 05:45] LABS: Anion Gap 10.9 (5-19); Blood Urea Nitrogen 4 mg/dL (6-20); Calcium 7.9 mg/dL (8.5-10.5); Carbon Dioxide 23 mmol/L (22-29); Chloride 105 mmol/L (98-107); Creatinine Clr Calc Pharmacy 122.2201; Glucose 127 mg/dL (65-115); Osmolality Calculated 278 mOsm/kg (285-295); Potassium 3.9 mmol/L (3.5-5.1); Sodium 135 mmol/L (136-145)
[2022-05-17] MEDS: acetaminophen 325 mg Tablet PO ×2 (05:53→17:08)
[2022-05-17] MEDS: cefTRIAXone 1,000 MG in sodium chloride 0.9% (plus) 50 ML 100 MG IV (08:15)
--- NOTE | 2022-05-17 08:36 | PM.PN ---
Subjective Subjective: Ericka reports she feels somewhat better. Still has significant chills at times. Trying to keep up on Tylenol. Does not feel nauseous anymore. Think she can eat today. Back pain is still fairly severe. Headache is not present currently. Medications: Reviewed: Yes Vitals/I&O/Wt Last Vital Signs Temp 98.2 F 05/17/22 07:45 Pulse 83 05/17/22 07:45 Resp 16 05/17/22 07:45 BP 100/63 05/17/22 07:45 Pulse Ox 98 05/17/22 07:45 O2 Del Method 05/17/22 07:45 05/16/22 05/17/22 05/17/22 22:59 06:59 14:59 Intake Total 2537.5 / 3587.5 1355 / 4942.5 Balance 2537.5 / 3587.5 1355 / 4942.5 Weight last 48 hrs Weight 63.503 kg Physical Exam Narrative: General exam appears more comfortable Neck is supple no lymphadenopathy thyromegaly Cardiovascular regular rate and rhythm, no murmur Lungs clear no wheezing or crackles Abdomen is soft. Positive bowel sounds. No tenderness currently exam is deferred Extremities no cyanosis clubbing or edema, cap refill brisk Skin no rash Data : 05/17/22 05:08 05/17/22 05:08 Micro: Microbiology 05/16/22 08:40 Urine Culture - Preliminary Urine,Clean Catch Gram Negative Rods 05/16/22 08:56 Blood Culture - Preliminary Blood SPECIMEN COLLECTED 05/16/22 08:53 Blood Culture - Preliminary Blood SPECIMEN COLLECTED A&P Assessment and plan (1) Pyelonephritis: Patient presents with evidence of pyelonephritis. Symptomatology is fever, flank pain, nausea and vomiting. She appears at least mildly dehydrated. She continues to have chills and fairly severe back pain. Changed to regular admission. Blood culture, urine culture pending Continue Rocephin IV. No past cultures with any resistant bacteria Monitor closely for improvement Status: Acute (2) Headache: Patient reported significant headache on arrival. CT head negative She did receive IV Tylenol, reports headache is much improved. I did perform a Kernig and Brudzinski's in the room as well and she had no significant increase in discomfort. Headache is resolved today Status: Acute Plan Previous history of pyelonephritis, UTI on 2 emergency department visits earlier this year. Some stranding and inflammatory changes in the proximal ureter on the right side. She may benefit from urology referral at discharge secondary to recurrent UTI/pyelonephritis. Mild hypokalemia. Resolved GERD. Can change Pepcid to p.o. Full code Low risk, no DVT prophylaxis needed. Attestations Medical Necessity Statement*: Needs continued hospitalization secondary to persistent low-grade temperatures, chills, persistent severe back pain in this patient with pyelonephritis. Coding Level of Care Code Acute Paperboard Machine Operator for Janel Lee Diagnoses Pyelonephritis N12 Headache R51.9
[2022-05-17] MEDS: famotidine 20 mg Tablet PO ×2 (09:13→17:09)
--- NOTE | 2022-05-17 12:03 | PC.CHAP ---
Pastoral Care Encounter/Spiritual Assessment Type of Contact [] Declined plastic molder visit [] Patient/Family/Request visit [] Outpatient visit [] Follow-up visit [] Physician referral [] Code/Alert [x] Routine visit [] Staff referral [] Actively dying [] Patient sleeping [] Family support [] [] Out of room [] Palliative care [] [] Receiving care in room [] Pre-surgical visit [] Trauma [] Long length of stay [] ICU visit [] Other: Relational/Emotional Strength [x] Patient feels connected with others/family/visitors/staff [] Distress [] Loneliness/isolation [] Abandonment Spirituality of Patient [x]x Person of Candie [x] Attends Confucianist of their Candie [x] Believes in Prayer [] Reads Bible or Pentecostal materials [] There are Spiritual issues to be addressed Lab Aid Interventions [x] Prayer [x] Active listening [x] Non-anxious presence [x] Spiritual/emotional support [] Crisis/trauma care [] Spiritual counseling [] Bereavement support [] Provided bereavement packet [] Provided Bible/devotional materials [] Provided toy/stuffed animal, coloring book to patient or family member [] Provided Communion [] Anointing/[place] [] Salvation [x] Completed spiritual assessment [] Other: Impact on Illness or Injury [] Angry [] Fearful [] Anxious [] Often cries [] Exhaustion [] Unable to work [] Unable to attend nondenominational [] Unable to walk/stand [] Unable to read [] Unable to drive [] Unable to eat/drink [] Unable to sleep [] Unable to be with family [] Patient intubated [] Other: Summary Time spent with patient 15 min
[2022-05-18] MEDS: ondansetron 2 mg/ML SDV 2 mL 4 MG IVP (00:21)
[2022-05-18 00:22] VITALS: RESP 16
[2022-05-18] MEDS: oxyCODONE 5 mg IR Tab/Cap 10 MG PO (00:22)
[2022-05-18] MEDS: D5-NS 0.45% + KCL 20 mEq 20 MEQ/1,000 ML BAG 100 MEQ IV ×2 (00:24→08:54)
[2022-05-18 03:45] VITALS: BP 93/59; PULSE 70; RESP 16; TEMP 36.6; O2SAT 98
[2022-05-18 04:41] LABS: Basophils % 0.5 %; Eosinophils # 0.2 10^3/uL (0.0-0.8); Eosinophils % 3.4 %; Hematocrit 30.7 % (37.0-47.0); Hemoglobin 9.8 g/dL (11.5-15.3); Lymphocytes % 33.2 %; Mean Corpuscular HGB Conc 31.9 g/dL (30.0-36.0); Mean Corpuscular Hemoglobin 28.2 pg (28.0-34.0); Mean Corpuscular Volume 88.5 fl (81-99); Mean Platelet Volume 9.4 fL (7.4-10.4); Monocytes # 0.9 10^3/uL (0.2-0.9); Monocytes % 13.8 %; Neutrophils % 48.8 %; Nucleated Red Blood Cells % 0 %; Platelet Count 204 10^3/cmm (130-400); Red Blood Count 3.47 10^6/uL (4.1-5.3); Red Cell Distribution Width 13.9 % (12.1-15.1); White Blood Count 6.2 10^3/uL (4.0-10.0)
[2022-05-18 05:10] LABS: Anion Gap 9.7 (5-19); Blood Urea Nitrogen 4 mg/dL (6-20); Calcium 8.5 mg/dL (8.5-10.5); Carbon Dioxide 27 mmol/L (22-29); Chloride 103 mmol/L (98-107); Glomerular Filtration Rate 99.6 mL/min (90-130); Glucose 106 mg/dL (65-115); Osmolality Calculated 279 mOsm/kg (285-295); Potassium 3.7 mmol/L (3.5-5.1); Sodium 136 mmol/L (136-145)
[2022-05-18 06:00] VITALS: PULSE 68
[2022-05-18 08:00] VITALS: BP 92/54; PULSE 72; RESP 15; TEMP 36.8; O2SAT 97
[2022-05-18] MEDS: cefTRIAXone 1,000 MG in sodium chloride 0.9% (plus) 50 ML 100 MG IV (08:53)
[2022-05-18] MEDS: acetaminophen 325 mg Tablet PO (08:54)
[2022-05-18] MEDS: famotidine 20 mg Tablet PO (08:54)
--- NOTE | 2022-05-18 09:42 | PM.DCS ---
Discharge Providers Date of Admission: 05/17/22 08:40 Date of Discharge: May 18, 2022 Attending Provider at Admission: Philippe Joyner MD Attending Provider at Discharge: Philippe Joyner MD Diagnoses at Discharge Discharge Diagnosis (1) Pyelonephritis: Status: Acute (2) Headache: Status: Acute Reason for Visit Reason for Visit: Sick and in pain Hospital Course Hospital Course Ericka is a 26-year-old white female who presented to the emergency department complaining of back pain, fever, nausea and vomiting. Urinalysis was significant for UTI. Temperature was over [address] scan demonstrated no obstruction, but multifocal pyelonephritis right kidney. Rocephin was initiated as well as hydration. With this treatment fever came down, and patient gradually improved. Second day of hospital stay she was still having severe back pain, and chills. By the third day she was doing well eating and had significantly less discomfort. It was thought she could be discharged home. Blood cultures were negative to date. Urine culture demonstrated EColi, sisitive to Ceftriaxone. Physical Exam Narrative: General exam no distress Ambulating without difficulty Skin no obvious rash. Neuro no obvious focal deficits. Discharge Data Studies Completed and Pending Completed Studies During Hospitalization Category Date Time Status CT abdomen pelvis w con* [id number] Stat Cat Scan 05/16/22 08:[address] head wo con* [id number] Stat Cat Scan 05/16/22 08:28 Completed Pending at discharge Category Date Time Status Blood Culture Stat Lab 05/16/22 08:56 Results Urine Culture Stat Lab 05/16/22 08:40 Results Radiology Impressions Abdomen/Pelvis CT 05/16/22 08:28 IMPRESSION: 1. Multifocal RIGHT renal pyelonephritis. No renal abscess. No obstruction although there are mild inflammatory changes in the central renal pelvis and proximal ureter. 2. Negative LEFT kidney. 3. Normal appendix. 4. Fluid distended endometrium. Slightly more than expected but could be related to the patient's menstrual cycle. 5. Small amount of physiologic free fluid in the pelvis. Head CT 05/16/22 08:28 IMPRESSION: Negative head CT. Laboratory Results WBC 6.2 10^3/uL (4.0-10.0) 05/18/22 04:16 RBC 3.47 10^6/uL (4.1-5.3) L 05/18/22 04:16 Hgb 9.8 g/dL (11.5-15.3) L 05/18/22 04:16 Hct 30.7 % (37.0-47.0) L 05/18/22 04:16 MCV 88.5 fl (81-99) 05/18/22 04:16 MCH 28.2 pg (28.0-34.0) 05/18/22 04:16 MCHC 31.9 g/dL (30.0-36.0) 05/18/22 04:16 RDW 13.9 % (12.1-15.1) 05/18/22 04:16 Plt Count 204 10^3/cmm (130-400) 05/18/22 04:16 MPV 9.4 fL (7.4-10.4) 05/18/22 04:16 Neut % (Auto) 48.8 % 05/18/22 04:16 Lymph % (Auto) 33.2 % 05/18/22 04:16 [place] % (Auto) 13.8 % 05/18/22 04:16 Eos % (Auto) 3.4 % 05/18/22 04:16 Baso % (Auto) 0.5 % 05/18/22 04:16 Neut # (Auto) 3.00 10^3/uL (1.8-7.7) 05/18/22 04:16 Lymph # (Auto) 2.0 10^3/uL (0.8-4.8) 05/18/22 04:16 [place] # (Auto) 0.9 10^3/uL (0.2-0.9) 05/18/22 04:16 Eos # (Auto) 0.2 10^3/uL (0.0-0.8) 05/18/22 04:16 Baso # (Auto) 0.0 10^3/uL (0.0-0.1) 05/18/22 04:16 Nucleated RBC % (auto) 0 % 05/18/22 04:16 Nucleated RBCs # 0.0 /100WBC 05/18/22 04:16 Sodium 136 mmol/L (136-145) 05/18/22 04:16 Potassium 3.7 mmol/L (3.5-5.1) 05/18/22 04:16 Chloride 103 mmol/L (98-107) 05/18/22 04:16 Carbon Dioxide 27 mmol/L (22-29) 05/18/22 04:16 Anion Gap 9.7 (5-19) 05/18/22 04:16 BUN 4 mg/dL (6-20) L 05/18/22 04:16 Creatinine 0.7 mg/dL (0.5-0.9) 05/18/22 04:16 GFR Calculation 99.6 mL/min (90-130) 05/18/22 04:16 Glucose 106 mg/dL (65-115) 05/18/22 04:16 Calculated Osmolality 279 mOsm/kg (285-295) L 05/18/22 04:16 Calcium 8.5 mg/dL (8.5-10.5) 05/18/22 04:16 Magnesium 1.6 mg/dL (1.7-2.3) L 05/16/22 08:25 Total Bilirubin 0.6 mg/dL (0.15-1.2) 05/16/22 08:25 AST 12 U/L (0-32) 05/16/22 08:25 ALT 6 U/L (0-33) 05/16/22 08:25 Alkaline Phosphatase 65 U/L (35-105) 05/16/22 08:25 Total Protein 7.5 g/dL (6.6-8.7) 05/16/22 08:25 Albumin 4.2 g/dL (3.5-5.2) 05/16/22 08:25 Globulin 3.3 g/dL (1.3-4.6) 05/16/22 08:25 TSH 0.98 uIU/mL (0.27-4.20) 05/16/22 08:25 HCG, Qual Negative (Negative) 05/16/22 08:25 Urine Color Yellow (Yellow) 05/16/22 08:40 Urine Appearance Sl hazy (CLEAR) 05/16/22 08:40 Urine pH 9 (5-7) H 05/16/22 08:40 Ur Specific [place] 1.015 (1.005-1.030) 05/16/22 08:40 Urine Protein Neg (Negative) 05/16/22 08:40 Urine Glucose (UA) Norm (Normal) 05/16/22 08:40 Urine Ketones 1+ (Negative) H 05/16/22 08:40 Urine Blood Neg (Negative) 05/16/22 08:40 Urine Nitrate Positive (Negative) H 05/16/22 08:40 Urine Bilirubin Neg (Negative) 05/16/22 08:40 Prot Sulfosalicylic Acd Negative (Negative) 05/16/22 08:40 Urine Urobilinogen Norm mg/dL (Negative) 05/16/22 08:40 Ur Leukocyte Esterase Trace (Negative) H 05/16/22 08:40 Urine RBC None /hpf (0-2) 05/16/22 08:40 Urine WBC 15-25 /hpf (0-5) H 05/16/22 08:40 Ur Squamous Epith Cells 0-4 /hpf (0-5) H 05/16/22 08:40 Amorphous Sediment Not Reportable 05/16/22 08:40 Urine Bacteria 2+ /hpf (NONE) H 05/16/22 08:40 Coronavirus 229E (PCR) Not detected (NOT DETECT) 05/16/22 08:45 SARS-CoV-2 (PCR) Not detected (NOT DETECT) 05/16/22 08:45 Vitals Last Vital Signs Temp 98.3 F 05/18/22 08:00 Pulse 72 05/18/22 08:00 Resp 15 05/18/22 08:00 BP 92/54 05/18/22 08:00 Pulse Ox 97 05/18/22 08:00 O2 Del Method 05/18/22 03:45 Discharge Plan Discharge Patient Disposition: Home Condition: Stable Prescriptions: New cefdinir 300 mg capsule 300 mg PO BID 10 Days Qty: 20 0RF Continued Tylenol Ex Str Rapid Release 500 mg Tablet 1,000 mg PO Q6H PRN (Reason: Pain) Discharge Orders: Discharge Order (Routine); Ordered 05/18/22 Ordered By: Philippe Joyner Referrals: Hermilo Dupree DO [Physician] - 06/01/22 9:30 am Liam Andres MD [Physician] - 2 weeks (Recurrent UTI/pyelo, 3 episodes this year) Discharge Diet: Regular Discharge Activity: Increase activity as tolerated Patient Instructions: Opioid Safety Activity Restrictions/Additional Instructions: Take all medicine as prescribed. Encourage fluids Return for any concerns Discharge Attestations Time Spent in Discharge Care*: greater than 30 min Quality Metrics Clinical Quality Measures [ No reported AMI, CVA or VTE this stay] Coding Level of Care Code Acute Chg FW DC note Diagnoses Pyelonephritis N12 Headache R51.9
[2022-05-18 12:00] VITALS: BP 88/55; PULSE 68; RESP 17; TEMP 36.6; O2SAT 98
[2022-05-18 12:41] VITALS: BP 88/55; PULSE 68; RESP 17; TEMP 36.6; O2SAT 98
== END 2022-05-18 12:43 | disposition home or self-care (01) | DRG 690 ==
LOC: ER 08:41 → MEDSURG 14:59
PROVIDERS: Admitting Provider Internal Medicine; Emergency Provider Family Medicine; Visit Provider Internal Medicine
DX: N12 Tubulo-interstitial nephritis, not specified as acute or chronic (principal); Z87.440 Personal history of urinary (tract) infections; Z86.16 Personal history of COVID-19; F17.200 Nicotine dependence, unspecified, uncomplicated; E86.0 Dehydration; R51.9 Headache, unspecified; E87.6 Hypokalemia; N39.0 Urinary tract infection, site not specified; B96.20 Unspecified Escherichia coli [E. coli] as the cause of diseases classified elsewhere
CPT/HCPCS: 36415; 70450; 74177; 80048; 80053; 81001; 83735; 84443; 84703; 85025; 87040; 87077; 87086; 87186; 87635; 96365; 96375; 99285; G0378; J0696; J2270; J2405; J3490; J7030; Q9967

== ENCOUNTER → 2022-06-01 10:46 | Outpatient (BNVA) | payer MEDICAID, SELFPAY | PROVIDERS: Visit Provider Family Medicine | DX: N39.0 Urinary tract infection, site not specified (principal); N92.6 Irregular menstruation, unspecified; Z12.4 Encounter for screening for malignant neoplasm of cervix; Z76.89 Persons encountering health services in other specified circumstances | CPT/HCPCS: 80053; 81000; 83735; 85025 ==

== ENCOUNTER → 2022-06-06 08:41 | Outpatient (BNVA) | payer MEDICAID, SELFPAY | PROVIDERS: PCP Family Medicine; Visit Provider Nurse Practitioner Family | DX: N39.0 Urinary tract infection, site not specified (principal); N20.9 Urinary calculus, unspecified | CPT/HCPCS: 51798; 87086; 99203 ==

== ENCOUNTER → 2022-06-13 08:03 | Outpatient (BNVA) | payer MEDICAID, SELFPAY | PROVIDERS: PCP Family Medicine; Visit Provider Nurse Practitioner Family | DX: N39.0 Urinary tract infection, site not specified (principal); N20.9 Urinary calculus, unspecified | CPT/HCPCS: 81003 ==

== ENCOUNTER → 2022-08-08 11:25 | Outpatient (BNVA) | payer BC, MEDICAID, SELFPAY | PROVIDERS: PCP Family Medicine; Visit Provider Nurse Practitioner Women's Health | DX: N93.9 Abnormal uterine and vaginal bleeding, unspecified (principal); N20.9 Urinary calculus, unspecified | CPT/HCPCS: 84439; 84443; 84702; 85025; 87491; 87591; 87661 ==

== ENCOUNTER → 2022-08-25 15:00 | Outpatient (BNVA) | payer BC, MEDICAID, SELFPAY | PROVIDERS: PCP Family Medicine; Visit Provider Nurse Practitioner Women's Health | DX: N93.9 Abnormal uterine and vaginal bleeding, unspecified (principal) | CPT/HCPCS: 76830 ==

== ENCOUNTER 2024-11-20 08:54 | Emergency (ER) | payer BC, MEDICAID, SELFPAY ==
[2024-11-20 09:07] VITALS: BP 137/72; PULSE 104; RESP 16; TEMP 36.5; O2SAT 98; BMI 29.2
[2024-11-20 09:15] LABS: Basophils % 0.3 %; Eosinophils # 0.1 10^3/uL (0.0-0.8); Eosinophils % 1.2 %; Hematocrit 40.8 % (36-47); Lymphocytes # 0.7 10^3/uL (0.8-4.8); Lymphocytes % 8.4 %; Mean Corpuscular HGB Conc 31.4 g/dL (30-55); Mean Corpuscular Hemoglobin 25.5 pg (27-33); Mean Corpuscular Volume 81.4 fl (85-98); Mean Platelet Volume 9.9 fL (7.4-10.4); Monocytes # 0.4 10^3/uL (0.2-0.9); Monocytes % 4.2 %; Neutrophils # 7.43 10^3/uL (1.8-7.7); Neutrophils % 85.7 %; Nucleated Red Blood Cells % 0 %; Platelet Count 242 10^3/cmm (157-399); Red Blood Count 5.01 10^6/uL (3.85-5.65); White Blood Count 8.67 10^3/uL (3.29-11.43)
--- NOTE | 2024-11-20 09:28 | W.ED.NAVMDI ---
HPI - Nausea/Vomiting/Diarrhea General: Chief complaint: Nausea/Vomiting/Diarrhea Stated complaint: NV/Fever Time Seen by Provider: 11/20/24 09:08 Source: patient Mode of arrival: ambulatory Limitations: no limitations History of Present Illness: 29-year-old female who states she has been having nausea vomiting diarrhea since last night. States she has had multiple episodes she is also having abdominal cramping she denies any fevers. She rates her pain a 5 out of 10 Associated nausea: Yes Associated symtoms: Reports nausea; Denies chest pain, dysuria or headache(s) Related Data Previous Rx's ?Medication ?Instructions ?Recorded albuterol sulfate 90 mcg/actuation 2 puff inhalation Q6H PRN 08/19/24 aerosol inhaler shortness of breath or wheezing #8.5 grams ondansetron 4 mg disintegrating 4 mg PO Q6H PRN nausea and 11/20/24 tablet vomiting #14 tabs Allergies Allergy/AdvReac Type Severity Reaction Status Date / Time No Known Allergies Allergy Verified 08/19/24 11:57 Review of Systems Const: Denies: fever(s), chills, body aches or change in appetite ENMT: Denies: throat pain or dental pain Card: Denies: chest pain Resp: Denies: dyspnea GI: Reports: abdominal pain, nausea, vomiting and diarrhea : Denies: dysuria Musc: Denies: neck pain or back pain Skin/Breast: Denies: rash Neuro: Denies: headache(s) PFSH ED PFSH: Medical History No pertinent past medical history neghx: htn,dm,thyroid,dvt/pe PCP: Dr. Dupree Surgical History Hx of tubal ligation (~10/2015) at time of History of 2015 with tubal ligation for TWIN --- Dr. Diaz Family History Father Parkinson disease Grandmother Breast cancer Paternal--dx age 73 Diabetes Paternal Ovarian cancer Maternal and Paternal-- dx age 30's Thyroid disease Paternal Mother Ovarian cancer dx age 40's Denies family history of Colon cancer Heart disease Hypercholesteremia Hypertension Uterine cancer Stroke Social History Smoking and tobacco/nicotine status: unknown if used tobacco/nicotine Substance/Drug Use: current Female Reproductive History: Para: 2 Spontaneous abortions: No Physical Exam Const: COMMON NORMALS: no acute distress, patient oriented x3 and healthy appearing HENMT: COMMON NORMALS: normocephalic and atraumatic HEAD & SCALP: normocephalic and atraumatic Eye: COMMON NORMALS: Equal, round and reactive pupils present and EOMs intact bilaterally PUPIL: Yes Equal, round and reactive pupils present Neck/C-Spine: COMMON NORMALS: full ROM and supple Chest: COMMONS NORMALS: normal inspection of the chest and normal palpation of entire chest wall Resp: COMMON NORMALS: normal respiratory effort, No retractions, No use of accessory muscles and clear to auscultation bilaterally AUSCULTATION: clear to auscultation bilaterally Cardio: COMMON NORMALS: regular rate, regular rhythm and No murmurs present (Cardio) RATE: regular rate RHYTHM: regular rhythm GI: COMMON NORMALS: Normal to inspection, nondistended, normoactive bowel sounds present, Soft to palpation, non-tender and no masses PALPATION: Yes Soft to palpation Extremity: COMMON NORMALS: normal to inspection and full ROM Neuro: COMMON NORMALS: patient oriented x3, moves all extremities and no focal motor deficits Psych: COMMON NORMALS: mental status grossly normal, Normal thought process present and cooperative THOUGHT PROCESS: Normal thought process present Skin: COMMON NORMALS: no rashes or lesions noted and no wounds GENERAL SKIN EXAM: no rashes or lesions noted Course Vital Signs: Vital signs: Vital Signs Temperature 97.7 F 11/20/24 09:07 Pulse Rate 85 11/20/24 09:56 Respiratory Rate 16 11/20/24 09:07 Blood Pressure 114/75 11/20/24 09:56 Pulse Oximetry 99 11/20/24 09:56 Oxygen Delivery Me thod Room Air 11/20/24 09:56 MDM - Nausea/Vomiting/Diarrhea Medical Decision Making Patient presents here with vomiting is likely viral in origin her abdominal exam is benign she feels much improved here after Zofran blood works normal no signs of acute surgical abdomen will prescribe her Zofran she is follow-up with PCP return if worsening. Medical Records I reviewed the patient's medical records. Lab Data I reviewed the patient's lab results. 11/20/24 09:05 11/20/24 09:05 Laboratory Results WBC 8.67 10^3/uL (3.29-11.43) 11/20/24 09:05 RBC 5.01 10^6/uL (3.85-5.65) 11/20/24 09:05 Hgb 12.80 g/dL (11.27-16.99) 11/20/24 09:05 Hct 40.8 % (36-47) 11/20/24 09:05 MCV 81.4 fl (85-98) L 11/20/24 09:05 MCH 25.5 pg (27-33) L 11/20/24 09:05 MCHC 31.4 g/dL (30-55) 11/20/24 09:05 RDW 14.0 % (12.1-15.1) 11/20/24 09:05 Plt Count 242 10^3/cmm (157-399) 11/20/24 09:05 MPV 9.9 fL (7.4-10.4) 11/20/24 09:05 Neut % (Auto) 85.7 % 11/20/24 09:05 Lymph % (Auto) 8.4 % 11/20/24 09:05 [place] % (Auto) 4.2 % 11/20/24 09:05 Eos % (Auto) 1.2 % 11/20/24 09:05 Baso % (Auto) 0.3 % 11/20/24 09:05 Neut # (Auto) 7.43 10^3/uL (1.8-7.7) 11/20/24 09:05 Lymph # (Auto) 0.7 10^3/uL (0.8-4.8) L 11/20/24 09:05 [place] # (Auto) 0.4 10^3/uL (0.2-0.9) 11/20/24 09:05 Eos # (Auto) 0.1 10^3/uL (0.0-0.8) 11/20/24 09:05 Baso # (Auto) 0.0 10^3/uL (0.0-0.1) 11/20/24 09:05 Nucleated RBC % (auto) 0 % 11/20/24 09:05 Nucleated RBCs # 0.0 /100WBC 11/20/24 09:05 Sodium 135 mmol/L (136-145) L 11/20/24 09:05 Potassium 3.9 mmol/L (3.5-5.1) 11/20/24 09:05 Chloride 102 mmol/L (98-107) 11/20/24 09:05 Carbon Dioxide 22 mmol/L (22-29) 11/20/24 09:05 Anion Gap 14.9 (5-19) 11/20/24 09:05 BUN 12 mg/dL (6-20) 11/20/24 09:05 Creatinine 0.7 mg/dL (0.5-0.9) 11/20/24 09:05 GFR Calculation 97.6 mL/min (90-130) 11/20/24 09:05 Glucose 106 mg/dL (65-115) 11/20/24 09:05 Calculated Osmolality 280 mOsm/kg (285-295) L 11/20/24 09:05 Calcium 8.9 mg/dL (8.5-10.5) 11/20/24 09:05 Total Bilirubin 0.7 mg/dL (0.15-1.2) 11/20/24 09:05 AST 13 U/L (0-32) 11/20/24 09:05 ALT 7 U/L (0-33) 11/20/24 09:05 Alkaline Phosphatase 80 U/L (35-105) 11/20/24 09:05 Total Protein 7.8 g/dL (6.6-8.7) 11/20/24 09:05 Albumin 4.6 g/dL (3.5-5.2) 11/20/24 09:05 Globulin 3.2 g/dL (1.3-4.6) 11/20/24 09:05 Lipase 31 U/L (13-60) 11/20/24 09:05 HCG, Qual Negative (Negative) 11/20/24 09:05 No radiology studies performed this visit Discharge Plan Discharge Patient Disposition: Home Clinical Impression: Vomiting Condition: Stable Prescriptions: New ondansetron 4 mg tablet,disintegrating 4 mg PO Q6H PRN (Reason: nausea and vomiting) Qty: 14 0RF No Action albuterol sulfate 90 mcg/actuation HFA aerosol inhaler 2 puff inhalation Q6H PRN (Reason: shortness of breath or wheezing) Qty: 8.5 0RF Discharge Orders: Discharge ED (Routine); Ordered 11/20/24 Ordered By: Chad Brown Discharge Diet: Advance as tolerated Discharge Activity: Resume usual activity Patient Instructions: Acute Nausea and Vomiting (ED) Print Language: Turkmen Coding Level of Care Code ED Telephone Services Sales Representative for Janel Lee
[2024-11-20 09:31] LABS: Alanine Aminotransferase 7 U/L (0-33); Albumin Level 4.6 g/dL (3.5-5.2); Alkaline Phosphatase 80 U/L (35-105); Anion Gap 14.9 (5-19); Aspartate Amino Transferase 13 U/L (0-32); Blood Urea Nitrogen 12 mg/dL (6-20); Calcium 8.9 mg/dL (8.5-10.5); Carbon Dioxide 22 mmol/L (22-29); Chloride 102 mmol/L (98-107); Creatinine Clr Calc Pharmacy 108.6248; Globulin 3.2 g/dL (1.3-4.6); Glomerular Filtration Rate 97.6 mL/min (90-130); Glucose 106 mg/dL (65-115); Lipase 31 U/L (13-60); Osmolality Calculated 280 mOsm/kg (285-295); Potassium 3.9 mmol/L (3.5-5.1); Sodium 135 mmol/L (136-145); Total Bilirubin 0.7 mg/dL (0.15-1.2); Total Protein 7.8 g/dL (6.6-8.7)
[2024-11-20 09:32] LABS: HCG, Serum Qual Negative (Negative)
[2024-11-20] MEDS: ondansetron 2 mg/ML SDV 2 mL 4 MG IVP (09:55)
[2024-11-20] MEDS: sodium chloride 0.9% 1,000 ML 999 ML IV (09:55)
[2024-11-20 09:56] VITALS: BP 114/75; PULSE 85; O2SAT 99
[2024-11-20] MEDS: ketorolac 30 mg/mL INJ 15 MG IVP (10:41)
[2024-11-20 11:31] LABS: Influenza A NEGATIVE (Negative); Influenza B NEGATIVE (Negative); Respiratory Syncytial Virus Ce NEGATIVE (Negative); SARS-CoV-2 PCR NEGATIVE (Negative)
== END 2024-11-20 11:50 | disposition home or self-care (01) ==
PROVIDERS: Emergency Provider Emergency Medicine
DX: R11.10 Vomiting, unspecified (principal)
CPT/HCPCS: 36415; 80053; 83690; 84703; 85025; 87637; 96361; 96374; 96375; 99284; J1885; J2405; J7030

== ENCOUNTER 2024-12-08 13:07 | Emergency (ER) | payer BC, MEDICAID, SELFPAY ==
[2024-12-08 13:18] VITALS: BP 113/68; PULSE 107; RESP 16; TEMP 36.9; O2SAT 98; BMI 28.3
--- NOTE | 2024-12-08 13:36 | W.ED.FEMALGU ---
HPI - Female Genitourinary General: Chief complaint: Urogenital-Female Stated complaint: urine is orange , back pain Time Seen by Provider: 12/08/24 13:23 Source: patient Mode of arrival: ambulatory Limitations: no limitations History of Present Illness: 29-year-old female states that she has been having dysuria along with foul-smelling discolored urine for roughly 5 to 6 days. States been having some flank pain as well right flank pain a 6 out of 10 she denies any fever she denies any vaginal bleeding or vaginal discharge. Associated symptoms: Deny abdominal pain, headache(s) or nausea Related Data Previous Rx's ?Medication ?Instructions ?Recorded albuterol sulfate 90 mcg/actuation 2 puff inhalation Q6H PRN 08/19/24 aerosol inhaler shortness of breath or wheezing #8.5 grams ondansetron 4 mg disintegrating 4 mg PO Q6H PRN nausea and 11/20/24 tablet vomiting #14 tabs ciprofloxacin HCl 500 mg tablet 500 mg PO BID #14 tabs 12/08/24 (Cipro) hydrocodone 5 mg-acetaminophen 325 1 tab PO Q6H PRN pain #14 tabs 12/08/24 mg tablet ondansetron 4 mg disintegrating 4 mg PO Q6H PRN nausea and 12/08/24 tablet vomiting #14 tabs Allergies Allergy/AdvReac Type Severity Reaction Status Date / Time No Known Allergies Allergy Verified 08/19/24 11:57 Review of Systems Const: Denies: fever(s), chills, body aches or change in appetite ENMT: Denies: throat pain or dental pain Card: Denies: chest pain Resp: Denies: dyspnea GI: Denies: abdominal pain, nausea, vomiting or diarrhea Musc: Denies: neck pain or back pain Skin/Breast: Denies: rash Neuro: Denies: headache(s) PFSH ED PFSH: Medical History No pertinent past medical history neghx: htn,dm,thyroid,dvt/pe PCP: Dr. Dupree Surgical History Hx of tubal ligation (~10/2015) at time of History of 2016 with tubal ligation for TWIN --- Dr. Diaz Family History Father Parkinson disease Grandmother Breast cancer Paternal--dx age 73 Diabetes Paternal Ovarian cancer Maternal and Paternal-- dx age 30's Thyroid disease Paternal Mother Ovarian cancer dx age 40's Denies family history of Colon cancer Heart disease Hypercholesteremia Hypertension Uterine cancer Stroke Social History Smoking and tobacco/nicotine status: unknown if used tobacco/nicotine Substance/Drug Use: current Female Reproductive History: Para: 2 Spontaneous abortions: No Physical Exam Const: COMMON NORMALS: no acute distress, patient oriented x3 and healthy appearing HENMT: COMMON NORMALS: normocephalic and atraumatic HEAD & SCALP: normocephalic and atraumatic Eye: COMMON NORMALS: conjunctivae normal CONJUNCTIVA: Yes conjunctivae normal Neck/C-Spine: COMMON NORMALS: full ROM and supple Chest: COMMONS NORMALS: normal inspection of the chest Resp: COMMON NORMALS: normal respiratory effort Cardio: COMMON NORMALS: regular rate, regular rhythm and No murmurs present (Cardio) RATE: regular rate RHYTHM: regular rhythm GI: COMMON NORMALS: Normal to inspection, nondistended, normoactive bowel sounds present, Soft to palpation, non-tender and no masses PALPATION: Yes Soft to palpation Extremity: COMMON NORMALS: normal to inspection and full ROM Neuro: COMMON NORMALS: patient oriented x3, moves all extremities and no focal motor deficits Psych: COMMON NORMALS: mental status grossly normal, Normal thought process present and cooperative THOUGHT PROCESS: Normal thought process present Skin: COMMON NORMALS: no rashes or lesions noted and no wounds GENERAL SKIN EXAM: no rashes or lesions noted Course Vital Signs: Vital signs: Vital Signs Temperature 98.4 F 12/08/24 13:18 Pulse Rate 107 H 12/08/24 13:18 Respiratory Rate 16 12/08/24 13:18 Blood Pressure 113/68 12/08/24 13:18 Pulse Oximetry 98 12/08/24 13:18 Oxygen Delivery Me thod Room Air 12/08/24 13:18 MDM - Female Medical Decision Making Patient presents here with dysuria she does have a urinary tract infection white count is normal no signs of being septic we will give her Cipro will start on Cipro at home along with pain nausea medicine she is return if worsening she understands agrees to plan Medical Records I reviewed the patient's medical records. Lab Data I reviewed the patient's lab results. 12/08/24 13:32 12/08/24 13:32 Laboratory Results WBC 6.44 10^3/uL (3.29-11.43) 12/08/24 13:32 RBC 4.78 10^6/uL (3.85-5.65) 12/08/24 13:32 Hgb 12.30 g/dL (11.27-16.99) 12/08/24 13:32 Hct 39.1 % (36-47) 12/08/24 13:32 MCV 81.8 fl (85-98) L 12/08/24 13:32 MCH 25.7 pg (27-33) L 12/08/24 13:32 MCHC 31.5 g/dL (30-55) 12/08/24 13:32 RDW 13.6 % (12.1-15.1) 12/08/24 13:32 Plt Count 302 10^3/cmm (157-399) 12/08/24 13:32 MPV 9.6 fL (7.4-10.4) 12/08/24 13:32 Neut % (Auto) 72.5 % 12/08/24 13:32 Lymph % (Auto) 19.7 % 12/08/24 13:32 [place] % (Auto) 5.7 % 12/08/24 13:32 Eos % (Auto) 1.2 % 12/08/24 13:32 Baso % (Auto) 0.6 % 12/08/24 13:32 Neut # (Auto) 4.66 10^3/uL (1.8-7.7) 12/08/24 13:32 Lymph # (Auto) 1.3 10^3/uL (0.8-4.8) 12/08/24 13:32 [place] # (Auto) 0.4 10^3/uL (0.2-0.9) 12/08/24 13:32 Eos # (Auto) 0.1 10^3/uL (0.0-0.8) 12/08/24 13:32 Baso # (Auto) 0.0 10^3/uL (0.0-0.1) 12/08/24 13:32 Nucleated RBC % (auto) 0 % 12/08/24 13:32 Nucleated RBCs # 0.0 /100WBC 12/08/24 13:32 Sodium 140 mmol/L (136-145) 12/08/24 13:32 Potassium 3.6 mmol/L (3.5-5.1) 12/08/24 13:32 Chloride 105 mmol/L (98-107) 12/08/24 13:32 Carbon Dioxide 24 mmol/L (22-29) 12/08/24 13:32 Anion Gap 14.6 (5-19) 12/08/24 13:32 BUN 9 mg/dL (6-20) 12/08/24 13:32 Creatinine 0.7 mg/dL (0.5-0.9) 12/08/24 13:32 GFR Calculation 97.6 mL/min (90-130) 12/08/24 13:32 Glucose 122 mg/dL (65-115) H 12/08/24 13:32 Calculated Osmolality 290 mOsm/kg (285-295) 12/08/24 13:32 Calcium 9.0 mg/dL (8.5-10.5) 12/08/24 13:32 Total Bilirubin 0.3 mg/dL (0.15-1.2) 12/08/24 13:32 AST 13 U/L (0-32) 12/08/24 13:32 ALT 7 U/L (0-33) 12/08/24 13:32 Alkaline Phosphatase 71 U/L (35-105) 12/08/24 13:32 Total Protein 7.8 g/dL (6.6-8.7) 12/08/24 13:32 Albumin 4.5 g/dL (3.5-5.2) 12/08/24 13:32 Globulin 3.3 g/dL (1.3-4.6) 12/08/24 13:32 Lipase 27 U/L (13-60) 12/08/24 13:32 HCG, Qual Negative (Negative) 12/08/24 13:32 Urine Color Yellow (Yellow) 12/08/24 14:44 Urine Appearance Turbid (CLEAR) A 12/08/24 14:44 Urine pH 7.0 (5-7) 12/08/24 14:44 Ur Specific [place] 1.017 (1.005-1.030) 12/08/24 14:44 Urine Protein Trace (Negative) A 12/08/24 14:44 Urine Glucose (UA) Negative (Normal) 12/08/24 14:44 Urine Ketones Negative (Negative) 12/08/24 14:44 Urine Blood Negative (Negative) 12/08/24 14:44 Urine Nitrate Positive (Negative) A 12/08/24 14:44 Urine Bilirubin Negative (Negative) 12/08/24 14:44 Urine Urobilinogen 1.0 mg/dL (Negative) 12/08/24 14:44 Ur Leukocyte Esterase 3+ (Negative) A 12/08/24 14:44 Urine RBC 0-2 /hpf (0-2) 12/08/24 14:44 Urine WBC >100 /hpf (0-5) H 12/08/24 14:44 Ur Squamous Epith Cells 21-50 /hpf (0-5) H 12/08/24 14:44 Amorphous Sediment Not Reportable 12/08/24 14:44 Urine Bacteria Exceeds /hpf (NONE) 12/08/24 14:44 Hyaline Casts 2.46 /lpf 12/08/24 14:44 No radiology studies performed this visit Discharge Plan Discharge Patient Disposition: Home Clinical Impression: Urinary tract infection Condition: Stable Prescriptions: New hydrocodone-acetaminophen 5-325 mg tablet 1 tab PO Q6H PRN (Reason: pain) Qty: 14 0RF ciprofloxacin HCl [Cipro] 500 mg tablet 500 mg PO BID Qty: 14 0RF ondansetron 4 mg tablet,disintegrating 4 mg PO Q6H PRN (Reason: nausea and vomiting) Qty: 14 0RF No Action albuterol sulfate 90 mcg/actuation HFA aerosol inhaler 2 puff inhalation Q6H PRN (Reason: shortness of breath or wheezing) Qty: 8.5 0RF ondansetron 4 mg tablet,disintegrating 4 mg PO Q6H PRN (Reason: nausea and vomiting) Qty: 14 0RF Discharge Orders: Discharge ED (Routine); Ordered 12/08/24 Ordered By: Chad Brown Discharge Diet: Advance as tolerated Discharge Activity: Resume usual activity Patient Instructions: Urinary Tract Infection in Women (ED), Opioid Safety Print Language: Slovenian Coding Level of Care Code ED Medicare Insurance Specialist for Janel Lee
[2024-12-08 13:41] LABS: Basophils % 0.6 %; Eosinophils # 0.1 10^3/uL (0.0-0.8); Eosinophils % 1.2 %; Hematocrit 39.1 % (36-47); Lymphocytes # 1.3 10^3/uL (0.8-4.8); Lymphocytes % 19.7 %; Mean Corpuscular HGB Conc 31.5 g/dL (30-55); Mean Corpuscular Hemoglobin 25.7 pg (27-33); Mean Corpuscular Volume 81.8 fl (85-98); Mean Platelet Volume 9.6 fL (7.4-10.4); Monocytes # 0.4 10^3/uL (0.2-0.9); Monocytes % 5.7 %; Neutrophils # 4.66 10^3/uL (1.8-7.7); Neutrophils % 72.5 %; Nucleated Red Blood Cells % 0 %; Platelet Count 302 10^3/cmm (157-399); Red Blood Count 4.78 10^6/uL (3.85-5.65); Red Cell Distribution Width 13.6 % (12.1-15.1); White Blood Count 6.44 10^3/uL (3.29-11.43)
[2024-12-08] MEDS: sodium chloride 0.9% 1,000 ML 999 ML IV (13:41)
[2024-12-08] MEDS: ondansetron 2 mg/ML SDV 2 mL 4 MG IVP (13:41)
[2024-12-08] MEDS: ketorolac 30 mg/mL INJ 15 MG IVP (13:41)
[2024-12-08 13:57] LABS: HCG, Serum Qual Negative (Negative)
[2024-12-08 14:06] LABS: Alanine Aminotransferase 7 U/L (0-33); Albumin Level 4.5 g/dL (3.5-5.2); Alkaline Phosphatase 71 U/L (35-105); Anion Gap 14.6 (5-19); Aspartate Amino Transferase 13 U/L (0-32); Blood Urea Nitrogen 9 mg/dL (6-20); Carbon Dioxide 24 mmol/L (22-29); Chloride 105 mmol/L (98-107); Creatinine Clr Calc Pharmacy 106.9571; Globulin 3.3 g/dL (1.3-4.6); Glomerular Filtration Rate 97.6 mL/min (90-130); Glucose 122 mg/dL (65-115); Lipase 27 U/L (13-60); Osmolality Calculated 290 mOsm/kg (285-295); Potassium 3.6 mmol/L (3.5-5.1); Sodium 140 mmol/L (136-145); Total Bilirubin 0.3 mg/dL (0.15-1.2); Total Protein 7.8 g/dL (6.6-8.7)
[2024-12-08 14:49] LABS: Bilirubin Urine Negative (Negative); Blood Urine Negative (Negative); Glucose Urine UA Negative (Normal); Ketones Urine Negative (Negative); Leukocyte Esterase Urine 3+ (Negative); Nitrate Urine Positive (Negative); Protein Urine Trace (Negative); Specific Gravity, Urine 1.017 (1.005-1.030); Urine Appearance Turbid (CLEAR); Urine Color Yellow (Yellow)
[2024-12-08 14:53] LABS: Add Urine Microscopic? YES; Bacteria Urine EXCEEDS /hpf; Hyaline Casts Urine 2.46 /lpf; RBC Urine 0-2 /hpf (0-2); Squamous Epithelial Cell Urine 21-50 /hpf (0-5); WBC Urine >100 /hpf (0-5)
[2024-12-08 15:01] LABS: UA Slide Review UA Slide Review Perf
[2024-12-08 15:41] VITALS: PULSE 81; O2SAT 99
== END 2024-12-08 15:44 | disposition home or self-care (01) ==
PROVIDERS: Emergency Provider Emergency Medicine
DX: N39.0 Urinary tract infection, site not specified (principal)
CPT/HCPCS: 36415; 80053; 81001; 83690; 84703; 85025; 96374; 96375; 99284; J1885; J2405; J7030

== ENCOUNTER → 2025-03-18 14:51 | Outpatient (BNVA) | payer BC, MEDICAID, SELFPAY | PROVIDERS: PCP Family Medicine; Visit Provider Family Medicine | DX: Z01.419 Encounter for gynecological examination (general) (routine) without abnormal findings (principal); Z20.2 Contact with and (suspected) exposure to infections with a predominantly sexual mode of transmission; F41.1 Generalized anxiety disorder; F41.0 Panic disorder [episodic paroxysmal anxiety]; F17.219 Nicotine dependence, cigarettes, with unspecified nicotine-induced disorders; Z71.6 Tobacco abuse counseling | CPT/HCPCS: 81513; 86592; 86695; 86696; 86803; 87389; 87481; 87491; 87591; 87624; 87661 ==

== ENCOUNTER → 2025-05-14 16:22 | Outpatient (BNVA) | payer BC, MEDICAID, SELFPAY | PROVIDERS: PCP Family Medicine; Visit Provider Obstetrics & Gynecology | DX: R87.612 Low grade squamous intraepithelial lesion on cytologic smear of cervix (LGSIL) (principal); R87.810 Cervical high risk human papillomavirus (HPV) DNA test positive | CPT/HCPCS: 88305 ==

== ENCOUNTER 2025-09-04 05:39 | Day surgery (SDC) | payer BC, MEDICAID, SELFPAY ==
[2025-09-04] VITALS (10 sets, daily range): BP systolic 96–122; BP diastolic 57–77; PULSE 76–100; RESP 16–18; TEMP 36.8–37.2; O2SAT 98–100; BMI 29.6
[2025-09-04 05:53] LABS: OR HCG Qualitative Urine Negative (Negative)
--- NOTE | 2025-09-04 05:54 | W.PM.OPSFHP ---
Same Day Surgery H&P Indication for Procedure/HPI DATE OF PROCEDURE: September 04, 2025 CHIEF COMPLAINT/INDICATIONFOR SURGICAL PROCEDURE: Previously, the patient underwent a Pap smear, which highlighted cellular abnormalities prompting a cervical biopsy. 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 Abnormal colposcopy, CIN2 PREOP DIAGNOSIS: CIN2 of cervix PLANNED PROCEDURE: Operation Date: 09/04/25 07:00 Proposed Procedures p Loop Electrosurgical Excision Procedure (LEEP) 12884 N87.1 R87.810 R87.612(Not Applicable) - Se Pagan MD Medications/Allergies* Home Medications ?Medication ?Instructions ?Recorded ?Confirmed ?Type buspirone 5 mg tablet 5 mg PO TID PRN Anxiety 04/15/25 09/03/25 History Allergies/Adverse Reactions Allergy/AdvReac Type Severity Reaction Status Date / Time No Known Allergies Allergy Verified 07/31/25 07:43 Pertinent History/Comorbid Conditions* Medical History (Updated 07/31/25 @ 10:46 by Se Pagan MD) Urolithiasis Suspected on CT scan 05/16/22 but no definitive due to contrast Costochondral chest pain No pertinent past medical history neghx: htn,dm,thyroid,dvt/pe PCP: Dr. Zhou Surgical History (Updated 08/08/22 @ 11:21 by Breanna Lloyd APN, THUAN) Hx of tubal ligation (~10/2015) at time of History of 2015 with tubal ligation for TWIN --- Dr. Diaz Family History (Updated 08/08/22 @ 10:31 by Chula Macdonald) Ovarian cancer Grandmother Maternal and Paternal-- dx age 30's Mother dx age 40's Diabetes Grandmother Paternal Breast cancer Grandmother Paternal--dx age 73 Parkinson disease Father Thyroid disease Grandmother Paternal Denies family history of Colon cancer Heart disease Hypercholesteremia Hypertension Uterine cancer Stroke Social History Smoking and tobacco/nicotine status: current every day tobacco/nicotine user (vape use) Second hand smoke exposure: Yes Alcohol intake: current Alcohol intake frequency: holidays/special occasions only Substance/Drug Use: never Pertinent Exam Findings alert, oriented x 3, clear to auscultation bilaterally, regular rate & rhythm and procedure specific exam findings (ROSENDO@, high grade dysplasia) Recommendations Surgery/Procedure today Coding Level of Care Code Acute Code for Chg Fwd
--- NOTE | 2025-09-04 06:16 | ANES.PREANE2 ---
Pre-Anesthetic Assessment Height/Weight: Height 5 ft 2 in Weight 162 lb Temp Pulse Resp BP Pulse Ox O2 Del Method 98.2 F 77 18 122/69 98 Room Air 09/04/25 06:06 09/04/25 06:06 09/04/25 06:06 09/04/25 06:06 09/04/25 06:06 09/04/25 06:06 Preop Diagnosis: CIN2 of cervix Operation Date: 09/04/25 07:00 Proposed Procedures p Loop Electrosurgical Excision Procedure (LEEP) 99927 N87.1 R87.810 R87.612(Not Applicable) - Se Pagan MD Was Beta Joie taken within 24 hours: N/A Was Clonidine taken within 24 hours: N/A Last intake: Intake Last Liquid Date 09/03/25 Last Liquid Time 20:00 Last Solid Date 09/03/25 Last Solid Time 21:30 Social No alcohol and No tobacco Quit smoking 2 months ago Exam alert, oriented x 3, clear to auscultation bilaterally and regular rate & rhythm Airway Submandibular: within normal limits Cervical ROM: within normal limits Mallampati: Class III Dentition: full Anesthetic Plan ASA status: 2 Anesthesia: General Other: Patient has never had anesthesia, grandfather had MH N.p.o. since yesterday evening Quit smoking 2 months ago Anxiety, takes escitalopram and buspirone METs greater than 4 Plan for general anesthesia Medications/Allergies Home Medications ?Medication ?Instructions ?Recorded ?Confirmed ?Last Taken ?Type buspirone 5 mg tablet 5 mg PO TID PRN Anxiety 04/15/25 09/03/25 Unknown History escitalopram oxalate 10 mg tablet 10 mg PO DAILY #30 tabs 07/22/25 09/03/25 09/03/25 Rx Allergies Allergy/AdvReac Type Severity Reaction Status Date / Time No Known Allergies Allergy Verified 09/04/25 06:15 [facility] Anesthesia Medical History (Updated 07/31/25 @ 10:46 by Se Pagan MD) Urolithiasis Suspected on CT scan 05/16/22 but no definitive due to contrast Costochondral chest pain No pertinent past medical history neghx: htn,dm,thyroid,dvt/pe PCP: Dr. Zhou Surgical History Hx of tubal ligation (~10/2015) at time of History of 2015 with tubal ligation for TWIN --- Dr. Diaz Family History Father Parkinson disease Grandmother Breast cancer Paternal--dx age 73 Diabetes Paternal Ovarian cancer Maternal and Paternal-- dx age 30's Thyroid disease Paternal Mother Ovarian cancer dx age 40's Denies family history of Colon cancer Heart disease Hypercholesteremia Hypertension Uterine cancer Stroke Social History Smoking and tobacco/nicotine status: current every day tobacco/nicotine user (vape use) Second hand smoke exposure: Yes Alcohol intake: current Alcohol intake frequency: holidays/special occasions only Substance/Drug Use: never Female Reproductive History Para: 2 Spontaneous abortions: No
[2025-09-04] MEDS: lidocaine-epi 1% 20 mL INJ 10 ML INJECTION (07:50)
--- NOTE | 2025-09-04 08:18 | P.OP_ITS ---
Brief Operative Note Date of procedure: 09/04/25 Pre-op diagnosis: High grade dysplasia of cervix Post-op diagnosis: same Procedure Done: Procedure:?Loop Electrosurgical Excision Procedure (LEEP) Indication:?High-grade squamous intraepithelial lesion (HSIL) on colposcopy- directed cervical biopsy Pre-procedure Assessment: * Informed consent obtained after discussion of risks, benefits, and alternati ves * test: Negative * Patient counseled regarding post-procedure instructions Surgeon: Se Pagan Estimated blood loss (mL): 15 Complications: None Post-op Plan: Plan: * Await final pathology results * Surveillance per ASCCP guidelines based on final pathology and margin status * Long-term follow-up recommended given history of high-grade dysplasia
--- NOTE | 2025-09-04 08:18 | PM.OP2 ---
Brief Operative Note Date of procedure: 09/04/25 Pre-op diagnosis: High grade dysplasia of cervix Post-op diagnosis: same Procedure Done: Procedure:?Loop Electrosurgical Excision Procedure (LEEP) Indication:?High-grade squamous intraepithelial lesion (HSIL) on colposcopy-directed cervical biopsy Pre-procedure Assessment: Informed consent obtained after discussion of risks, benefits, and alternatives test: Negative Patient counseled regarding post-procedure instructions Surgeon: Se Pagan Estimated blood loss (mL): 15 Complications: None Post-op Plan: Plan: Await final pathology results Surveillance per ASCCP guidelines based on final pathology and margin status Long-term follow-up recommended given history of high-grade dysplasia
--- NOTE | 2025-09-04 09:49 | SUR.PHASEII ---
rx called into pharmacy for ibuprofen 800mg tid #9, acetaminophen 650mg q6h x3D per dr narvaez
--- NOTE | 2025-09-04 09:54 | ANE.PACU2 ---
Inpatient post-anesthesia follow up: Airway intact: Yes Vital signs: Temperature 98.3 F Pulse Rate 86 Respiratory Rate 17 Blood Pressure 103/73 Pulse Oximetry 100 Oxygen Delivery Me thod Room Air Oxygen Flow Rate Fraction of Inspir ed Oxygen Hydration adequate: Yes Nausea and vomiting: No Pain level: 1 Mental status: Baseline
--- NOTE | 2025-09-04 10:03 | P.OP_ITS ---
Operative Report Date of procedure: September 04, 2025 Pre-op diagnosis: CIN2 of cervix Post-op diagnosis: same Post-op findings: Cervical tissue submitted to pathology for histopathologic evaluation Procedure done: LEEP under general a. Specimens removed/disposition: Cervix transformation zone, one piece tagged with suture 12oclock Surgeon: Se Pagan MD Estimated blood loss: 15ml Complications: None Findings: Cervical tissue submitted to pathology for histopathologic evaluation Brief History: This 29-year-old patient presented with abnormal cervical cytology showing low- grade squamous intraepithelial lesion (LGSIL) with positive high-risk human papillomavirus (HPV) testing. Subsequent colposcopy-guided cervical biopsy revealed Cervical Intraepithelial Neoplasia Grade 2 (CIN2), a high-grade precancerous lesion requiring excisional treatment to prevent progression to CIN3 or invasive cervical cancer. After discussion of risks, benefits, and alternatives, including the potential impact on future pregnancies, the patient provided informed consent for LEEP. Procedure: The patient was taken to the procedure room and placed in dorsal lithotomy position. General anesthesia used. A time-out was performed confirming patient identity, procedure, and site. The patient was prepped and draped in the usual sterile fashion. A weighted speculum was placed in the vagina, and the cervix was visualized. The cervix was noted to be large. Past colposcopic examination performed, A 4-0 suture was placed at the 12 o'clock position to jaci the orientation of the specimen for pathologic evaluation. Local anesthesia was administered via paracervical block using lidocaine with epinephrine to provide adequate pain control during the procedure. The patient tolerated the anesthetic injection well. Using electrosurgical loop excision, multiple passes were required to completely excise the transformation zone due to the large size of the cervix. The entire squamocolumnar junction and visible lesion were removed to ensure adequate treatment and reduce the risk of occult invasive disease. Each pass was performed systematically to achieve complete excision of the transformation zone while maintaining specimen integrity for pathologic assessment. Following excision, hemostasis was achieved using ball electrode cauterization applied to the excision bed, with care taken to avoid excessive cauterization at the new cervical os to minimize risk of cervical stenosis and ensure satisfactory future colposcopy. All excised tissue was submitted to pathology as separate specimens with orie ntation marked by the suture at 12 o'clock. The specimens will be evaluated for grade of dysplasia, depth of excision, and margin status. The speculum was removed. The patient tolerated the procedure well without complications and was discharged to the recovery area in stable condition with appropriate postoperative instructions. ESTIMATED BLOOD LOSS: 15ml
== END 2025-09-04 09:54 | disposition home or self-care (01) ==
PROVIDERS: Student in an Organized Health Care Education/Training Program; PCP Family Medicine; Visit Provider Obstetrics & Gynecology
PROC: (CPT 57460; principal; 2025-09-04 07:00)
DX: N87.1 Moderate cervical dysplasia (principal); F41.9 Anxiety disorder, unspecified; Z80.3 Family history of malignant neoplasm of breast; Z80.41 Family history of malignant neoplasm of ovary; F17.290 Nicotine dependence, other tobacco product, uncomplicated
CPT/HCPCS: 57460; 81025; 88307; A4216; J1100; J1885; J2250; J2405; J2704; J3010; J7030; J9999

== ENCOUNTER 2025-09-07 08:13 | Emergency (ER) | payer BC, MEDICAID, SELFPAY ==
[2025-09-07 08:16] VITALS: BP 98/71; PULSE 96; RESP 16; TEMP 36.9; O2SAT 97; BMI 24.8
--- NOTE | 2025-09-07 09:23 | W.ED.GENADLT ---
HPI - General Adult General: Chief complaint: Nausea/Vomiting/Diarrhea Stated complaint: n,v,d Time Seen by Provider: 09/07/25 08:15 History of Present Illness: 29-year-old female presents emergency room with complaint of nausea vomiting low-grade fever. Her symptoms began this morning she has 2 of her children with her 1 of who symptoms began yesterday and another began overnight. She is complaining of generalized aches pains myalgias low-grade fever. Patient reports having a LEEP procedure done earlier this week. Associated symptoms: Reports nausea and vomiting; Deny chest pain, dyspnea or rash Related Data Home Medications ?Medication ?Instructions ?Recorded ?Confirmed buspirone 5 mg tablet 5 mg PO TID PRN Anxiety 04/15/25 09/04/25 Previous Rx's ?Medication ?Instructions ?Recorded escitalopram oxalate 10 mg tablet 10 mg PO DAILY #30 tabs 07/22/25 diclofenac sodium 75 mg 75 mg PO Q12H PRN pain #20 tabs 09/07/25 tablet,delayed release promethazine 25 mg tablet 25 mg PO Q6H PRN nausea and 09/07/25 vomiting #20 tabs Allergies Allergy/AdvReac Type Severity Reaction Status Date / Time No Known Allergies Allergy Verified 09/04/25 06:15 Review of Systems Const: Denies: fever(s) or chills Card: Denies: chest pain Resp: Reports: non-productive cough; Denies: dyspnea GI: Reports: abdominal pain, nausea and vomiting : Denies: dysuria, urinary frequency or urinary urgency Musc: Denies: neck pain or back pain Skin/Breast: Denies: rash PFSH ED PFSH: Medical History Urolithiasis Suspected on CT scan 05/16/22 but no definitive due to contrast Costochondral chest pain No pertinent past medical history neghx: htn,dm,thyroid,dvt/pe PCP: Dr. Zhou Surgical History Hx of tubal ligation (~10/2015) at time of History of 2016 with tubal ligation for TWIN --- Dr. Diaz Family History Father Parkinson disease Grandmother Breast cancer Paternal--dx age 73 Diabetes Paternal Ovarian cancer Maternal and Paternal-- dx age 30's Thyroid disease Paternal Mother Ovarian cancer dx age 40's Denies family history of Colon cancer Heart disease Hypercholesteremia Hypertension Uterine cancer Stroke Social History Smoking and tobacco/nicotine status: current every day tobacco/nicotine user (vape use) Second hand smoke exposure: Yes Alcohol intake: current Alcohol intake frequency: holidays/special occasions only Substance/Drug Use: never Female Reproductive History: Para: 2 Spontaneous abortions: No Physical Exam Const: GENERAL APPEARANCE: cooperative ORIENTATION/CONSCIOUSNESS: Yes awake, Yes oriented to person, Yes oriented to place and Yes oriented to time HENMT: COMMON NORMALS: normocephalic, atraumatic and hearing grossly normal bilaterally HEAD & SCALP: normocephalic and atraumatic Resp: COMMON NORMALS: normal respiratory effort, No retractions, No use of accessory muscles and clear to auscultation bilaterally AUSCULTATION: clear to auscultation bilaterally Cardio: COMMON NORMALS: regular rate, regular rhythm and No murmurs present (Cardio) RATE: regular rate RHYTHM: regular rhythm GI: COMMON NORMALS: Soft to palpation and No hepatosplenomegaly present AUSCULTATION: Yes normoactive bowel sounds PALPATION: Yes Soft to palpation, No Tenderness to palpation present (GI), No Guarding due to palpation present (GI) and Yes No hepatosplenomegaly present Extremity: COMMON NORMALS: normal to inspection, capillary refill normal, no clubbing, cyanosis or edema, no calf tenderness and no pedal edema Neuro: SENSORIUM/ORIENTATION: Yes oriented to person, Yes oriented to place and Yes oriented to time Skin: COMMON NORMALS: no rashes or lesions noted GENERAL SKIN EXAM: no rashes or lesions noted Course Vital Signs: Vital signs: Vital Signs Temperature 98.4 F 09/07/25 08:16 Pulse Rate 96 09/07/25 08:16 Respiratory Rate 16 09/07/25 08:16 Blood Pressure 98/71 09/07/25 08:16 Pulse Oximetry 97 09/07/25 08:16 Oxygen Delivery Me thod Room Air 09/07/25 08:16 MDM - General Adult Medical Decision Making Medical decision making Social determinants: None I reviewed the patient's medical record. I reviewed the patient's current home meds. Alternate historians: None Differential diagnosis: Flu COVID RSV viral infection strep Lab Review:Flu COVID RSV negative Imaging: None Assessment of risk Level of risk: Low Hospitalization considerations: No indication for hospitalization Reexamination: Unchanged Assessment and plan: Flu COVID RSV negative supportive cares. Will discharge home with diclofenac to use for postprocedure pain from the LEEP and promethazine to use as needed follow-up with [employer] who did LEEP if she continues to have pelvic discomfort. If her upper respiratory symptoms persist or worsen follow-up with primary care Lab Data Laboratory Results Influenza A (PCR) Negative (Negative) 09/07/25 08:21 Influenza Type B (PCR) Negative (Negative) 09/07/25 08:21 RSV (PCR) Negative (Negative) 09/07/25 08:21 SARS-CoV-2 (PCR) Negative (Negative) 09/07/25 08:21 No radiology studies performed this visit Discharge Plan Discharge Patient Disposition: Home Clinical Impression: Viral URI with cough Condition: Stable Prescriptions: New promethazine 25 mg tablet 25 mg PO Q6H PRN (Reason: nausea and vomiting) Qty: 20 0RF diclofenac sodium 75 mg tablet,delayed release (DR/EC) 75 mg PO Q12H PRN (Reason: pain) Qty: 20 0RF No Action escitalopram oxalate 10 mg tablet 10 mg PO DAILY Qty: 30 3RF buspirone 5 mg tablet 5 mg PO TID PRN (Reason: Anxiety) Discharge Orders: Discharge ED (Routine); Ordered 09/07/25 Ordered By: Pablo Hannah Referrals: Breanna Zhou DO [Primary Care Provider, Family Practice] Discharge Diet: Clear Liquid Discharge Activity: Increase activity as tolerated Patient Instructions: Viral Syndrome (ED), Opioid Safety, Pain Management, Patient Portal & Demarco Instructions Activity Restrictions/Additional Instructions: Thank you for choosing [facility] for your healthcare needs today. It is very important that you follow up as instructed or that you return to the Emergency Department should you have concerns or if your condition changes or worsens in any way. Emergency department visits are focused on emergent conditions, in some cases you may require further evaluation on an outpatient basis. You were seen in the emergency room with complaint of upper respiratory symptoms as well as some nausea and vomiting. Some of this may be exacerbated by your recent gynecologic procedure. Will discharge you home with diclofenac to use as needed for discomfort related to your [place] procedure. You are also given promethazine for nausea and vomiting you can take Tylenol as well. Recommend clear liquid diet for 24 to 48 hours and advance as tolerated. (Please note that included in your discharge packet is information concerning opioid safety and pain management. This information is given to all patients were discharged from the ER regardless of their discharge diagnosis or the medicines they usually take or are prescribed.) Print Language: Armenian Coding Level of Care Code ED [employer] for Janel Lee
[2025-09-07 09:26] LABS: Respiratory Syncytial Virus Ce NEGATIVE (Negative); SARS-CoV-2 PCR NEGATIVE (Negative)
== END 2025-09-07 09:53 | disposition home or self-care (01) ==
PROVIDERS: Emergency Provider Family Medicine; PCP Family Medicine
DX: J06.9 Acute upper respiratory infection, unspecified (principal); R05.9 Cough, unspecified; Z11.52 Encounter for screening for COVID-19
CPT/HCPCS: 87637; 96372; 99284; J1885